=== PATIENT | female | born 1975 | race African-American/Black ===

== ENCOUNTER → 2017-07-16 08:25 | Outpatient (CLI) | payer BC, SELFPAY ==
--- NOTE | 2017-07-16 08:29 | MM_ITS ---
MM Dig screening mamm BI w/CAD CAD Screening COMPARISON: None, previous mammograms were performed at [facility] but they're not available for review at this time INDICATION: There is no personal or family history of breast cancer TECHNIQUE: Standard CC and MLO images were obtained. R2 CAD reviewed. FINDINGS: The breasts are composed primarily of fat with minimal scattered fiber glandular densities throughout each breast. There are tiny benign-appearing nodular densities one in each breast there is no suspicious lesion and no suspicious microcalcifications. IMPRESSION: Fatty type breast parenchyma with no suspicious lesion seen recommend yearly follow-up BI-RADS Category: 2 Benign Finding(s) RECOMMENDED FOLLOW-UP: 1YR - 1 YEAR FOLLOW-UP (A letter has been sent to the patient regarding results of the study.)
[2017-07-16 11:10] LABS: Basophils % 0.3 % (0.1-2.0); Eosinophils # 0.3 K/mm3 (0.0-0.4); Hematocrit 39.3 % (37.0-47.0); Hemoglobin 12.1 g/dL (12.2-16.2); Lymphocytes # 1.5 K/mm3 (0.7-4.5); Lymphocytes % 22.3 K/mm3 (10-50); Mean Corpuscular HGB Conc 30.7 g/dL (31.8-35.4); Mean Corpuscular Hemoglobin 24.4 pg (27.0-31.2); Mean Corpuscular Volume 79.4 fl (81-99); Mean Platelet Volume 7.3 fl (7.4-10.4); Monocytes # 0.3 K/mm3 (0.1-1.0); Monocytes % 4.9 % (1.7-9.3); Neutrophils # 4.6 K/mm3 (1.8-7.8); Neutrophils % 68.5 % (37.0-80.0); Platelet Count 296 K/mm3 (142-424); Red Blood Count 4.95 M/mm3 (4.20-5.40); Red Cell Distribution Width 15.8 % (11.5-17.5); White Blood Count 6.7 K/mm3 (4.8-10.8)
[2017-07-16 12:39] LABS: Chol/HDL Ratio 2.8 (1-3.5); Cholesterol 223 mg/dL (140-200); HDL Cholesterol 80 mg/dL (29-89); LDL Cholesterol 111 mg/dL (0-130); Triglycerides 161 mg/dL (30-200); VLDL Cholesterol 32 mg/dL (0-40)
[2017-07-16 12:43] LABS: Alanine Aminotransferase 18 U/L (12-78); Albumin Level 3.1 gm/dL (3.4-5.0); Albumin/Globulin Ratio 0.7 (1.1-1.8); Alkaline Phosphatase 68 U/L (46-116); Anion Gap 13.3 mEq/L (5-15); Aspartate Amino Transferase 15 U/L (15-37); Bilirubin,Total 0.2 mg/dL (0.2-1.0); Blood Urea Nitrogen 12 mg/dL (7-18); Carbon Dioxide 26 mmol/L (21.0-32.0); Chloride 101 mmol/L (98-107); Creatinine,Serum 0.79 mg/dL (0.55-1.02); Estimated Glomerular Filt Rate 80 ml/min (>60); GFR (African American) 97 ML/MIN (>60); Globulin 4.7 gm/dl (1.3-3.2); Glucose 106 mg/dL (74-106); Potassium 4.3 mmoL/L (3.5-5.1); Sodium 136 mmol/L (136-145); Total Protein,Serum 7.8 gm/dL (6.4-8.2)
== END ==
PROVIDERS: Family Provider Family Medicine; PCP Family Medicine; Visit Provider Nurse Practitioner Obstetrics & Gynecology
DX: Z12.31 Encounter for screening mammogram for malignant neoplasm of breast (principal); R53.82 Chronic fatigue, unspecified
CPT/HCPCS: 36415; 77067; 80053; 80061; 85025

== ENCOUNTER → 2018-04-01 09:18 | Outpatient (CLI) | payer BC, SELFPAY ==
--- NOTE | 2018-04-01 09:38 | XR_ITS ---
XR knee LT 3V HISTORY: ITS.REASON: KNEE PAIN ORDERING PHYSICIAN: Jacqueline Ross PATIENT AGE: 43 years COMPARISON: 06/29/2015 FINDINGS: There are moderate osteoarthritic changes of the medial compartment and patellofemoral joint with decrease in joint space, osteosclerosis, and osteophyte formation. This is somewhat worse than when compared to the previous exam. A calcific density is present medial to the medial condyle of the femur and could be related to an old fracture/ligamentous injury. IMPRESSION: Slight progression of the osteoarthritic changes of the left knee as described above Old fracture versus prior ligamentous injury at the medial femoral condylar area
== END ==
PROVIDERS: PCP Nurse Practitioner Family; Visit Provider Nurse Practitioner Family
DX: M25.562 Pain in left knee (principal)
CPT/HCPCS: 73562

== ENCOUNTER → 2018-04-21 15:51 | Outpatient (CLI) | payer BC, SELFPAY ==
--- NOTE | 2018-04-21 15:54 | MR_ITS ---
MR knee LT wo con HISTORY: Left knee pain with limited range of motion ITS.REASON: KNEE PAIN, LEFT ORDERING PHYSICIAN: Martin Mauricio MD PATIENT AGE: 43 years Comparison: 04/01/2018 TECHNIQUE: Standard multiplanar multiecho sequences are performed without contrast. FINDINGS: The exam is limited secondary to patient's body habitus and the fact that the need well could not be used.. The anterior cruciate ligament is not identified and presumed torn. Posterior cruciate ligament has an unremarkable appearance. The collateral ligaments appear intact. The quadriceps tendon is unremarkable. There is increased signal involving the proximal and distal aspect of the popliteal tendon consistent with tendinopathy/tendinosis. There are severe osteoarthritic changes involving all 3 compartments. No obvious meniscal tear. There is mild lateral subluxation of the patella with thinning of the patellar cartilage consistent with chondromalacia patella. There is a 13 mm subchondral cystic lesion in the proximal tibia at the interspinous region of the tibia. There is some bone marrow edema lateral to this lesion within the proximal tibia. There is some scattered increased T2 signal within the fat of the knee nonspecific suggesting some underlying inflammation. There is also slight increased T2 signal along both medial and lateral aspect of the knee within the soft tissues. IMPRESSION: 1. Very limited exam. There are severe osteoarthritic changes of the knee joint including all 3 compartments worse at the medial compartment and patellofemoral joint. 2. Anterior cruciate ligament is not identified and is presumed torn. 3. A cystic lesion is present involving the proximal tibia at the interspinous region and may be due to a geode with some edema lateral to this lesion. 4. There is edema about both medial and lateral aspect of the knee joint and within the fat of the knee joint suggesting underlying inflammation 5. 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
== END ==
PROVIDERS: PCP Family Medicine; Visit Provider Family Medicine
DX: M25.562 Pain in left knee (principal)
CPT/HCPCS: 73721

== ENCOUNTER 2018-06-12 16:30 | Outpatient (RCR) | payer BC, SELFPAY ==
--- NOTE | 2018-05-30 17:42 | HMH.RHREAS ---
Rehab Reassessment Rehab OP Re-assessment Start: 05/30/18 17:30 Freq: Status: Active Protocol: Document 05/30/18 17:34 KIEL (Rec: 05/30/18 17:41 KIEL [id number]) Electronically Signed By Landon Hooker, PT 05/30/18 17:34 Rehab Re-assessment Subjective Subjective Pt reports 65% improvement since start of care. Objective Objective Notes AROM WNL R MMT: hip flex/ext/abd/add 4+ /5 IR/ER 4/5 knee flex/ext 4+/ 5 Pain: 4/10 at worst TTP: medial joint line Neuro WNL Assessment Progress Assessment Progressing as Expected Assessment Notes Pt progressing well. RLE strength continues to improve. Mobility is no longer an issue. She continues to have difficulty/pain with prolonged standing/bending/squatting activity which is contributing to functional limitations with household, work related and recreational activities. Patient goals met STG's Goals Not Met LTG's Plan Plan Continue with current POC. Frequency of Therapy 2x/week Duration of therapy 2 weeks. Time and Billing Re-Eval Time 15 Re-Eval Billing Units 1 PHYSICIAN CERTIFICATION: I certify the specified therapy services for Karin Smith are required, authorized, and reviewed every 30 days.
== END 2018-06-12 16:35 | disposition home or self-care (01) ==
LOC: PT 16:30
PROVIDERS: Visit Provider Nurse Practitioner Family
DX: M25.562 Pain in left knee (principal)
CPT/HCPCS: 97010; 97014; 97110; 97163; 97164; G0283

== ENCOUNTER → 2019-08-17 09:57 | Outpatient (CLI) | payer BC, SELFPAY ==
--- NOTE | 2019-08-17 09:57 | MM_ITS ---
PROCEDURE: MM DIG SCREENING MAMM BI W/CAD CLINICAL INDICATION: screening xmg There is no personal or family history of breast cancer. The patient is on control pills. COMPARISON: [facility] MM Dig screening mamm BI w/CAD from 07/16/2017 TECHNIQUE: Standard CC and MLO images and 3D Tomosynthesis was obtained. R2 CAD reviewed. FINDINGS: The breasts are composed primarily of fat with minimal scattered fibroglandular densities noted in each breast. There is a stable tiny benign-appearing nodular density near the axillary tail left breast. There is no suspicious lesion and no suspicious microcalcifications. IMPRESSION: Fatty type breast parenchyma with no suspicious lesions seen BI-RAD Category: 2 Benign Finding(s) FOLLOW-UP: 1YR 1 Year Follow-up (A letter has been sent to the patient regarding results of the study.) Dictated by: Dr. Jonel Gutiérrez MD 08/17/2019 16:[address] Jonel Gutiérrez MD in [place] 08/17/2019 16:27
== END ==
PROVIDERS: PCP Family Medicine; Visit Provider Nurse Practitioner Obstetrics & Gynecology
DX: Z12.31 Encounter for screening mammogram for malignant neoplasm of breast (principal)
CPT/HCPCS: 77063; 77067

== ENCOUNTER → 2020-10-04 09:16 | Outpatient (CLI) | payer BC, SELFPAY ==
[2020-10-04 10:07] LABS: Basophils % 0.4 % (0.1-2.0); Eosinophils # 0.4 K/mm3 (0.0-0.4); Eosinophils % 6.2 % (0.1-12.0); Hematocrit 34.5 % (37.0-47.0); Hemoglobin 10.5 g/dL (12.2-16.2); Lymphocytes # 1.3 K/mm3 (0.7-4.5); Lymphocytes % 20.8 % (10-50); Mean Corpuscular HGB Conc 30.6 g/dL (31.8-35.4); Mean Corpuscular Volume 78.4 fl (81-99); Mean Platelet Volume 7.8 fl (7.4-10.4); Monocytes # 0.3 K/mm3 (0.1-1.0); Monocytes % 4.6 % (1.7-9.3); Neutrophils # 4.2 K/mm3 (1.8-7.8); Neutrophils % 67.9 % (37.0-80.0); Platelet Count 294 K/mm3 (142-424); White Blood Count 6.2 K/mm3 (4.8-10.8)
[2020-10-04 11:18] LABS: Chloride 105 mmol/L (98-107); Sodium 135 mmol/L (136-145)
[2020-10-04 11:19] LABS: Potassium 4.5 mmoL/L (3.5-5.1)
[2020-10-04 11:21] LABS: Alanine Aminotransferase 17 U/L (12-78); Albumin Level 4.2 g/dl (3.5-5.0); Albumin/Globulin Ratio 1.1 (1.1-1.8); Alkaline Phosphatase 81 U/L (38-126); Anion Gap 10.5 mEq/L (5-15); Aspartate Amino Transferase 31 U/L (14-36); Bilirubin,Total 0.4 mg/dl (0.2-1.3); Blood Urea Nitrogen 13 mg/dl (7-17); Calcium 9.6 mg/dl (8.4-10.2); Carbon Dioxide 24 mmol/L (22.0-30.0); Chol/HDL Ratio 2.5 (1-3.5); Cholesterol 245 mg/dl (140-200); Estimated Glomerular Filt Rate 109 ml/min (>60); GFR (African American) 131 ML/MIN (>60); Globulin 3.7 g/dL (1.3-3.2); Glucose 118 mg/dl (74-100); HDL Cholesterol 97 mg/dl (40-60); Total Protein,Serum 7.9 g/dl (6.3-8.2); Triglycerides 114 mg/dl (30-150); VLDL Cholesterol 23 mg/dL (0-40)
[2020-10-04 11:39] LABS: Direct LDL Cholesterol 124.91 mg/dL (100-129)
== END ==
PROVIDERS: Visit Provider Nurse Practitioner Obstetrics & Gynecology
DX: Z01.419 Encounter for gynecological examination (general) (routine) without abnormal findings (principal)
CPT/HCPCS: 36415; 80053; 80061; 85025

== ENCOUNTER → 2021-01-16 12:52 | Outpatient (CLI) | payer BC, SELFPAY ==
--- NOTE | 2021-01-16 12:52 | MM_ITS ---
PROCEDURE: MM DIG SCREENING MAMM BI W/CAD Digital Breast Tomosynthesis Included CLINICAL INDICATION: screening xmg There is no personal or family history of breast cancer. The patient is on control pills. COMPARISON: [facility] MM Dig screening mamm BI w/CAD from 07/16/2017 MG MM DIG SCREENING MAMM BI W/CAD from 08/17/2019 TECHNIQUE: Standard CC and MLO images and 3D Tomosynthesis was obtained. R2 CAD reviewed. FINDINGS: The breasts are composed primarily of minimal scattered fibroglandular densities in each breast. Again noted is a tiny benign-appearing nodular density near the axillary tail left breast. There is a similar benign-appearing nodular density upper medial aspect right breast. There are no CAD markings. There is no new or suspicious lesion in either breast and no suspicious microcalcifications. IMPRESSION: Fatty type breast parenchyma with no suspicious lesions seen BI-RAD Category: 2 Benign Finding(s) FOLLOW-UP: 1YR 1 Year Follow-up (A letter has been sent to the patient regarding results of the study.) Dictated by: Dr. Jonel Gutiérrez MD 01/18/2021 08:09 Dr. Jonel Gutiérrez MD in [place] 01/18/2021 08:09
== END ==
PROVIDERS: PCP Family Medicine; Visit Provider Nurse Practitioner Obstetrics & Gynecology
DX: Z12.31 Encounter for screening mammogram for malignant neoplasm of breast (principal)
CPT/HCPCS: 77063; 77067

== ENCOUNTER → 2021-02-21 08:25 | Outpatient (CLI) | payer BC, SELFPAY ==
[2021-02-21 08:57] LABS: Basophils # 0.1 K/mm3 (0-0.2); Basophils % 0.8 % (0.1-2.0); Eosinophils # 0.3 K/mm3 (0.0-0.4); Eosinophils % 4.7 % (0.1-12.0); Hematocrit 39.4 % (37.0-47.0); Hemoglobin 12.5 g/dL (12.2-16.2); Lymphocytes # 1.4 K/mm3 (0.7-4.5); Lymphocytes % 22.4 % (10-50); Mean Corpuscular HGB Conc 31.7 g/dL (31.8-35.4); Mean Corpuscular Hemoglobin 28.1 pg (27.0-31.2); Mean Corpuscular Volume 88.4 fl (81-99); Mean Platelet Volume 7.9 fl (7.4-10.4); Monocytes # 0.3 K/mm3 (0.1-1.0); Monocytes % 4.9 % (1.7-9.3); Neutrophils # 4.1 K/mm3 (1.8-7.8); Neutrophils % 67.2 % (37.0-80.0); Platelet Count 258 K/mm3 (142-424); Red Blood Count 4.46 M/mm3 (4.20-5.40); Red Cell Distribution Width 15.1 % (11.5-17.5); White Blood Count 6.1 K/mm3 (4.8-10.8)
== END ==
PROVIDERS: Visit Provider Nurse Practitioner Obstetrics & Gynecology
DX: D50.9 Iron deficiency anemia, unspecified (principal); R53.82 Chronic fatigue, unspecified
CPT/HCPCS: 36415; 85025

== ENCOUNTER → 2021-12-19 15:27 | Outpatient (CLI) | payer BC, SELFPAY ==
--- NOTE | 2021-12-19 15:27 | US_ITS ---
FINAL REPORT CLINICAL HISTORY: Heavy Bleeding, Fibroid uterus FINDINGS: Transvaginal sonographic images of the pelvis were obtained. This study was limited secondary to body habitus. The uterus is enlarged measuring 11.4 x 9.6 x 8.9 cm. The endometrium measures 8 mm, which is within normal limits. There is a small amount of fluid in the endometrium. There are multiple masses within the uterus consistent with uterine fibroids. The largest measures up to 5.3 cm. The ovaries are not visualized. There is no evidence of free fluid. IMPRESSION: Enlarged uterus with multiple fibroids measuring up to 5.3 cm. Reviewed, Interpreted and Dictated by Alexander Herrera III, MD Transcribed by Iesha Heaton Authenticated and [facility]
== END ==
LOC: RAD 15:27
PROVIDERS: PCP Family Medicine; Visit Provider Nurse Practitioner Obstetrics & Gynecology
DX: D25.9 Leiomyoma of uterus, unspecified (principal); N92.0 Excessive and frequent menstruation with regular cycle
CPT/HCPCS: 76830

== ENCOUNTER → 2022-02-21 09:38 | Outpatient (CLI) | payer BC, SELFPAY ==
--- NOTE | 2022-02-21 09:38 | MM_ITS ---
PROCEDURE INFORMATION: Exam: MG Bilateral Screening 3D Mammography Exam date and time: 02/21/2022 8:14 AM Age: 47 years old Clinical indication: Screening. No family history of breast cancer. TECHNIQUE: Imaging protocol: Bilateral Screening tomosynthesis and 2D mammography including computer-aided detection (CAD) when performed. COMPARISON: 1. MG MM DIG SCREENING MAMM BI W/CAD 01/16/2021 12:51 PM 2. MG MM DIG SCREENING MAMM BI W/CAD 08/17/2019 10:00 AM 3. MG [facility] MM Dig screening mamm BI w/CAD 07/16/2017 8:45 AM FINDINGS: MAMMOGRAPHY: Breast composition: There are scattered areas of fibroglandular density. Mass: No suspicious mass. Architectural distortion: None. Calcifications: No suspicious calcifications. Asymmetric density: None. Skin thickening: None. Axillary adenopathy: None. IMPRESSION: No mammographic evidence of malignancy. Annual screening is recommended unless otherwise clinically indicated. ASSESSMENT: BI-RADS Category 1: Negative
== END ==
PROVIDERS: PCP Nurse Practitioner Obstetrics & Gynecology; Visit Provider Nurse Practitioner Obstetrics & Gynecology
DX: Z12.31 Encounter for screening mammogram for malignant neoplasm of breast (principal)
CPT/HCPCS: 77063; 77067

== ENCOUNTER → 2022-05-28 14:56 | Outpatient (CLI) | payer BC, SELFPAY ==
[2022-05-28 16:00] LABS: Basophils % 0.4 % (0.1-2.0); Eosinophils # 0.1 K/mm3 (0.0-0.4); Eosinophils % 1.1 % (0.1-12.0); Hematocrit 36.5 % (37.0-47.0); Hemoglobin 11.2 g/dL (12.2-16.2); Lymphocytes # 1.2 K/mm3 (0.7-4.5); Lymphocytes % 12.7 % (10-50); Mean Corpuscular HGB Conc 30.6 g/dL (31.8-35.4); Mean Corpuscular Hemoglobin 23.7 pg (27.0-31.2); Mean Corpuscular Volume 77.4 fl (81-99); Mean Platelet Volume 8.1 fl (7.4-10.4); Monocytes # 0.4 K/mm3 (0.1-1.0); Monocytes % 4.1 % (1.7-9.3); Neutrophils # 7.8 K/mm3 (1.8-7.8); Neutrophils % 81.6 % (37.0-80.0); Platelet Count 395 K/mm3 (142-424); Red Blood Count 4.72 M/mm3 (4.20-5.40); Red Cell Distribution Width 18.7 % (11.5-17.5); White Blood Count 9.5 K/mm3 (4.8-10.8)
[2022-05-28 17:09] LABS: Alanine Aminotransferase 26 U/L (12-78); Albumin Level 4.6 g/dl (3.5-5.0); Albumin/Globulin Ratio 1.3 (1.1-1.8); Alkaline Phosphatase 126 U/L (38-126); Anion Gap 25.5 mEq/L (5-15); Aspartate Amino Transferase 33 U/L (14-36); Bilirubin,Total 0.2 mg/dl (0.2-1.3); Blood Urea Nitrogen 22 mg/dl (7-17); Calcium 11.3 mg/dl (8.4-10.2); Carbon Dioxide 23 mmol/L (22.0-30.0); Chloride 94 mmol/L (98-107); Estimated Glomerular Filt Rate 37 ml/min (>60); GFR (African American) 45 ML/MIN (>60); Globulin 3.6 g/dL (1.3-3.2); Glucose 86 mg/dl (74-100); Potassium 3.5 mmoL/L (3.5-5.1); Sodium 139 mmol/L (136-145); Total Protein,Serum 8.2 g/dl (6.3-8.2)
[2022-05-28 17:37] LABS: HCG,Quantitative < 2 mIU/ml (0-5.42)
== END ==
PROVIDERS: PCP Family Medicine; Visit Provider Nurse Practitioner Obstetrics & Gynecology
DX: N92.0 Excessive and frequent menstruation with regular cycle (principal)
CPT/HCPCS: 36415; 80053; 84702; 85025

== ENCOUNTER 2022-05-30 06:04 | Day surgery (SDC) | payer BC, SELFPAY ==
[2022-05-30 06:12] VITALS: BMI 46.6
--- NOTE | 2022-05-30 06:25 | ECG_ITS ---
APPROVED REPORT Exam: Resting ECG HR:103 bpm ECG Measurements Heart Rate [address] 163 P 2 QRSd 92 QRS 23 QT 340 T -16 QTc 400 Conclusion SINUS TACHYCARDIA Isolated Q in iii ABNORMAL ECG UNCONFIRMED REPORT Electronically signed by : Martin Porter MD 05/30/2022 13:12:25
[2022-05-30 06:29] VITALS: BP 121/75; PULSE 105; RESP 18; TEMP 37.1; O2SAT 100
[2022-05-30 06:58] LABS: Coronavirus 19, PCR Not Detected (NotDetected); Influenza A, PCR Not Detected (NotDetected); Influenza B, PCR Not Detected (NotDetected)
--- NOTE | 2022-05-30 08:08 | EXP.CARD.CON ---
History of Present Illness History of Present Illness Consult date: 05/30/22 Requesting physician: Latrell Woodruff Chief complaint: Abnormal EKG, preop evaluation Additional Medical History:: 1. Hypertension, treated for 1 to 2 years 2. 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 Hyperlipidemia, treated for 2 years 4. Family history of early heart disease in both parents in their 50s who are smokers 5. Obesity 6. Abnormal EKG with isolated ST-T abnormalities in lead III, 05/30/2022 7. Osteoarthritis 8. Phentermine use History of present illness: 47-year-old black female seen in the preop area for abnormal EKG. patient denies any chest pain, pressure or tightness and no prior history of coronary artery disease. She was here today for a total abdominal hysterectomy for uterine fibroids and recurrent bleeding with anemia. Due to the abnormal EKG, surgery was canceled and cardiology consulted. History pertinent for hypertension, hyperlipidemia and strong family history of coronary artery disease. Recent phentermine use for weight loss noted. [facility] Medical History (Updated 05/30/22 @ 08:14 by STUART Minor) Allergies Anxiety Family history of early CAD History of COVID-19 Hyperlipidemia Hyperlipidemia Hypertension Osteoarthritis Surgical History History of bilateral tubal ligation Family History Other Family history of diabetes mellitus type II Family history of myocardial infarction Social History (Updated 05/30/22 @ 06:33 by Martha Simpson RN) Smoking Status: Never smoker alcohol intake: never substance use type: denies use current occupational status: employed Travel in the last 8 weeks: None housing: house lives independently: Yes marital status: single education level: high school caffeine: Yes special bhavesh needs: No agree to transfusion: No do you feel safe at home: Yes victim of physical abuse: No victim of emotional abuse: No victim of sexual abuse: No would you like helpful sources: No Review of Systems Review of Systems Review of systems:: pertinent systems reviewed and negative unless documented below *Cardiovascular Cardiovascular: Denies chest pain, Denies chest pain with activity and Reports dyspnea on exertion *Respiratory Respiratory: Denies chest congestion, Denies cough and Reports dyspnea on exertion *Gastrointestinal Gastrointestinal: Denies abdominal pain, Denies dyspepsia and Denies vomiting *Genitourinary Genitourinary: Reports abnormal vaginal bleeding *Musculoskeletal Musculoskeletal: Reports arthralgias Exam Data for Last 24 hours Vital signs and Labs for Last 24 Hours: Temp Pulse Resp BP Pulse Ox 98.7 F 105 H 18 121/75 100 05/30/22 06:29 05/30/22 06:29 05/30/22 06:29 05/30/22 06:29 05/30/22 06:29 Laboratory Results - last 24 hr 05/30/22 06:55: SARS-CoV-2 (PCR) Not detected, Influenza A Untype (PCR) Not detected, Influenza Type B (PCR) Not detected I & O for Last 24 hours: Intake & Output 05/27/22 05/28/22 05/29/22 05/30/22 11:59 11:59 11:59 11:59 Weight 289 lb Constitutional Constitutional: no acute distress *Routine Neck Exam Neck: Present supple; Absent JVD or carotid bruit *Routine Respiratory Exam Respiratory: Present CTA bilaterally; Absent rhonchi or wheezes *Routine Cardiovascular Exam Cardiovascular: Present RRR; Absent murmur, gallop or rubs *Routine Extremities Exam Extremities: Absent cyanosis, clubbing or edema *Routine Neurological Exam Neurological: Present alert, oriented X3 and CN II-XII intact Meds Home Medications and Allergies Home Medications Medication Instructions Recorded Confirmed Type hydroxyzine pamoate 25 mg capsule 25 mg PO DAILY Anxiety 30 days #30 07/22/18 05/30/22 History caps multivitamin 1 cap PO DAILY Suppl
--- NOTE | 2022-05-31 08:43 | P.PN_ITS ---
Subjective *Date: 05/30/22 *Time: 08:43 Interval history: She was scheduled for JANELL and bilateral salpingectomy. She has a fibroid uterus. She had an EKG this morning that was abnormal. As result of that we are going to cancel her surgery and have her see cardiology. She also has some elevated BUN and creatinine possibly consistent with early kidney disease. We will have her see a thermoplastic technician for this. Medical Exam I & O for Labs for Last 24 Hours: Intake & Output 05/28/22 05/29/22 05/30/22 05/31/22 11:59 11:59 11:59 11:59 Weight 289 lb Assessment and Plan *Assessment and plan (1) Obesity: Status: Acute Category: Medical Code(s): E66.9 - Obesity, unspecified (2) CHRISTIANE (acute kidney injury): Status: Acute Category: Medical Code(s): N17.9 - Acute kidney failure, unspecified (3) Abnormal EKG: Status: Acute Category: Medical Code(s): R94.31 - Abnormal electrocardiogram [ECG] [EKG] (4) Hypertension: Status: Acute Category: Medical Code(s): I10 - Essential (primary) hypertension (5) Fibroid uterus: Status: Acute Category: Medical Code(s): D25.9 - Leiomyoma of uterus, unspecified (6) Irregular menstruation: Status: Acute Category: Medical Code(s): N92.6 - Irregular menstruation, unspecified (7) Uterine hypertrophy: Status: Acute Category: Medical Code(s): N85.2 - Hypertrophy of uterus Plan Given the fact that she has an abnormal EKG we will have her see cardiology today. They have done an echocardiogram. They have seen her in consultation and will make arranges for an outpatient stress test. If all these are normal we will reschedule her for surgery.
== END 2022-05-30 07:15 ==
PROVIDERS: PCP Family Medicine; Visit Provider Nurse Practitioner Obstetrics & Gynecology
PROC: 0UT90ZZ Resection of Uterus, Open Approach (ICD-10-PCS; CPT 58150; principal; 2022-05-30 07:30)
DX: N92.0 Excessive and frequent menstruation with regular cycle; R94.31 Abnormal electrocardiogram [ECG] [EKG]; D25.9 Leiomyoma of uterus, unspecified; N92.6 Irregular menstruation, unspecified; N85.2 Hypertrophy of uterus; Z53.8 Procedure and treatment not carried out for other reasons
CPT/HCPCS: 58150; 93005; 96372; 96374; C9803; U0003; U0005

== ENCOUNTER → 2022-05-30 08:13 | Outpatient (CLI) | payer BC, SELFPAY ==
--- NOTE | 2022-05-30 | CA_ITS ---
APPROVED REPORT EXAM: Comprehensive 2D, Doppler, and color-flow Echocardiogram Chrome Tanning Drum Operator: Misty Keys CRT Ht: 5 ft 6 in Wt: 289lbs BSA: 2.34 BP: 121/75 mmHg Indications: PRE-OPCLEARANCE HYSTERECTOMY, Phentermine use for weight loss, Hyperlipidemia, Hypertension/HDD, hx covid 2D Dimensions LVOT 1.98 cm (M/F) 1.5-2.5 LA Volume 44.60 mL LA Volume Index 18.60 mL/m2 (M/F) 16-34 M-Mode Dimensions RVDd 3.00 cm (0.9-2.6) LA Diam 3.62 cm (1.9-4.0) LVDd 5.38 cm (3.5-5.7) Ao Diam 4.09 cm (2.0-3.7) LVDs 3.29 cm (3.5-5.7) IVSd 1.25 cm (0.6-1.1) PWd 1.13 cm (0.6-1.1) EF (Teich) 68.70% FS 38.80% EDV (Teich) 140.10 mL TAPSE 2.97 (<1.7) ESV (Teich) 43.80 mL LV Diastology E Decel Time 220.00 (160-240 msec) E/A Ratio 0.73 MED E' 7.50 (< 7 cm/sec) MED A' 12.90 cm/s E'/MED E' Ratio 8.57 (>14) LAT E' 10.80 (<10 cm/sec) LAT A' 16.80 cm/s E/LAT E' Ratio 5.95 (>14) Aortic Valve AO Peak GR. 12.00 mmHg Mitral Valve MV A Velocity 88.00 (40-130 cm/s) E/A Ratio 0.73 MV Decel. Time 220.00 (160-240 ms) Pulmonary Valve PV Peak Velocity 192.00 (50-150 cm/s) Tricuspid Valve TR P. Velocity 305.00 cm/s RAP Estimate 10.00 mmHg RVSP 47.20 mmHg Left Ventricle Left atrium is mildly enlarged the left ventricle is normal size, estimated ejection fraction 55% with no regional wall motion abnormality, Doppler evidence of impaired LV relaxation seen. Right Ventricle Right atrium and right ventricle are normal size and contractility. Aortic Valve Aortic valve is minimally thickened and fibrosed there is no aortic stenosis or aortic insufficiency. Mitral Valve Mitral valve is grossly normal, there is trace mitral regurgitation. Tricuspid Valve Tricuspid valve grossly normal, there is trace tricuspid regurgitation, tricuspid regurgitation jet velocity is inadequate for calculation of the right ventricular systolic pressure. Pulmonic Valve Pulmonic valve is poorly visualized. Great Vessels Aortic root is normal size. Inferior vena cava is poorly visualized. Pericardium No significant pericardial effusion noted. Conclusion 1. Mildly enlarged atrium, normal left ventricular size, estimated ejection fraction 55% with no regional wall motion abnormality, Doppler evidence of impaired LV relaxation seen. 2. Trace mitral and tricuspid regurgitation. 3. No significant pericardial effusion. 4. Inferior vena cava is poorly visualized. Electronically signed by : Martin Croft MD 05/30/2022 13:14:49
== END ==
LOC: RT 08:14
PROVIDERS: PCP Family Medicine; Visit Provider Physician Assistant
DX: Z01.810 Encounter for preprocedural cardiovascular examination (principal); R94.31 Abnormal electrocardiogram [ECG] [EKG]
CPT/HCPCS: 93306

== ENCOUNTER → 2022-06-06 07:57 | Outpatient (CLI) | payer BC, SELFPAY ==
--- NOTE | 2022-06-06 09:24 | HMH.ITSHM ---
Current Home Medications as stated by this patient Karin Smith or circulation representative. []TRAMADOL ROSUVASTATIN PHENTERMINE MULTIVITAMIN PROVERA LOSARTAN IRON HYDROXYZINE AMLODIPINE
== END ==
LOC: RAD 07:57
PROVIDERS: PCP Family Medicine; Visit Provider Physician Assistant
DX: R94.31 Abnormal electrocardiogram [ECG] [EKG] (principal); I10 Essential (primary) hypertension
CPT/HCPCS: 78452; 93017; A9502

== ENCOUNTER → 2022-09-19 11:34 | Outpatient (CLI) | payer BC, SELFPAY ==
[2022-09-19 12:42] LABS: Basophils # 0.1 K/mm3 (0-0.2); Basophils % 0.8 % (0.1-2.0); Eosinophils # 0.2 K/mm3 (0.0-0.4); Eosinophils % 2.6 % (0.1-12.0); Hematocrit 40.4 % (37.0-47.0); Lymphocytes # 1.7 K/mm3 (0.7-4.5); Lymphocytes % 24.8 % (10-50); Mean Corpuscular HGB Conc 32.1 g/dL (31.8-35.4); Mean Corpuscular Hemoglobin 28.6 pg (27.0-31.2); Mean Corpuscular Volume 88.9 fl (81-99); Mean Platelet Volume 7.7 fl (7.4-10.4); Monocytes # 0.4 K/mm3 (0.1-1.0); Monocytes % 5.3 % (1.7-9.3); Neutrophils # 4.7 K/mm3 (1.8-7.8); Neutrophils % 66.5 % (37.0-80.0); Platelet Count 322 K/mm3 (142-424); Red Blood Count 4.54 M/mm3 (4.20-5.40); Red Cell Distribution Width 14.1 % (11.5-17.5)
[2022-09-19 14:34] LABS: Alanine Aminotransferase 19 U/L (12-78); Albumin/Globulin Ratio 1.3 (1.1-1.8); Alkaline Phosphatase 73 U/L (38-126); Anion Gap 12.9 mEq/L (5-15); Aspartate Amino Transferase 27 U/L (14-36); Bilirubin,Total 0.3 mg/dl (0.2-1.3); Blood Urea Nitrogen 12 mg/dl (7-17); Carbon Dioxide 23 mmol/L (22.0-30.0); Chloride 104 mmol/L (98-107); Estimated Glomerular Filt Rate 77 ml/min (>60); GFR (African American) 93 ML/MIN (>60); Globulin 3.2 g/dL (1.3-3.2); Glucose 111 mg/dl (74-100); Potassium 3.9 mmoL/L (3.5-5.1); Sodium 136 mmol/L (136-145); Total Protein,Serum 7.2 g/dl (6.3-8.2)
[2022-09-19 14:53] LABS: HCG,Quantitative < 2 mIU/ml (0-5.42)
== END ==
LOC: LAB 11:35
PROVIDERS: PCP Family Medicine; Visit Provider Nurse Practitioner Obstetrics & Gynecology
DX: N92.0 Excessive and frequent menstruation with regular cycle (principal)
CPT/HCPCS: 36415; 80053; 84702; 85025

== ENCOUNTER 2022-09-26 08:58 | Inpatient (IN) | payer BC, SELFPAY ==
[2022-09-24 10:32] VITALS: BMI 45.0
[2022-09-26] VITALS (24 sets, daily range): BP systolic 98–117; BP diastolic 58–69; PULSE 69–91; RESP 14–19; TEMP 36.3–43; O2SAT 92–100
[2022-09-26 06:47] LABS: Coronavirus 19, PCR Not Detected (NotDetected); Influenza A, PCR Not Detected (NotDetected); Influenza B, PCR Not Detected (NotDetected)
--- NOTE | 2022-09-26 08:21 | EXP.ANES.CKL ---
[facility] Disclaimer: The information contained in this section may have been updated after the patient was seen, as this information can be updated by other users. Medical History Allergies Anxiety Family history of early CAD HHD (hypertensive heart disease) History of anemia History of COVID-19 Hyperlipidemia Hyperlipidemia Hypertension Osteoarthritis Surgical History History of bilateral tubal ligation Family History Other Cancer Family history of diabetes mellitus type II Family history of myocardial infarction Social History (Updated 09/26/22 @ 06:40 by Martha Simpson RN) Smoking Status: Never smoker alcohol intake: never substance use type: denies use current occupational status: employed Travel in the last 8 weeks: None housing: house lives independently: Yes marital status: single education level: high school caffeine: No special bhavesh needs: No agree to transfusion: No do you feel safe at home: Yes victim of physical abuse: No victim of emotional abuse: No victim of sexual abuse: No would you like helpful sources: No [facility] Anesthesia Checklist Patient Identification Patient Identification: Arm Band Structural Data Admitted From: Home Planned Operative Procedure/s: [facility] Consent for Planned Operative Procedure(s) Verified: Yes Verified Documents: Surgical Consent and History and Physical NPO Status Verified Time NPO: 00:00 Additional verifications Anesthesia Reactions: No Hx Blood Transfusions: No Blood Transfusion Reaction: No Airway Assessment C-Spine Mobility Assessed: Yes TMJ Mobility Assessed: Yes Dentition: Good Dentition Neurological Assessment Level of Consciousness: Awake and Alert Anesthesia Plan Anesthesia Risk discussed: Yes Anesthesia Plan: Verified ASA Class: III Anesthesia Type: General
--- NOTE | 2022-09-26 09:43 | HMH.PHAINT1 ---
Pharmacy Intervention Comments: home medication list verified using list from outpatient pharmacy and cardiology office
--- NOTE | 2022-09-26 09:59 | SUR.OPER ---
0905- decision to go open to open to open abdominal hysterectomy made. End time for laparoscopic portion of the case was 907. All counts completed for the laparoscopic portion of the case and were correct and table/all supplies removed from the room. blades-2 suture-11 hypo-4 bovie-1 laps-5 rays-10 New table brought into the room at this time and a new count was completed with all normal counts, main set, bookwalter, and hysterectomy instruments. Pt was reprepped and draped to start the open portion of the case. 0922- family updated of the decision to go open and the consent was updated and resigned. 0923- open incision made at this time.
--- NOTE | 2022-09-26 10:54 | EXP.OP.NOTE ---
Date of procedure: 09/26/22 Pre-op Diagnosis:: Fibroid uterus, menorrhagia Post-op Diagnosis:: Fibroid uterus, menorrhagia Procedure performed:: Total abdominal hysterectomy, bilateral salpingectomy Surgeon:: Latrell Woodruff MD [employer] Driver(s):: Dr. Mora NIPPLE THREADER:: Woodrow Castellon Anesthesia: GETA Estimated blood loss (mL): 750 Clinical Note:: She is a 47-year-old lady who complains of extremely heavy periods. She is known to have fibroids. After having discussed the risk and benefits we elected to perform a hysterectomy and bilateral salpingectomy. We had initially thought we could do it laparoscopically but the uterus was just too large. As a result of that we elected to reprepped and redraped her and perform a midline laparotomy. Operative findings:: She had a very large uterus with multiple fibroids. There was a 6 cm fibroid off the left fundus of the uterus and the uterus itself was grossly enlarged about the size of large softball. There were also small fibroids on the external surface of the uterus measuring 1 to 2 cm. Her ovaries and tubes appeared normal. Operative note:: She was taken the operating room where general anesthesia was found be adequate. She is prepped draped in sterile fashion in the semilithotomy position. A weighted speculum placed in vagina and the anterior lip of the cervix was grasped with a tenaculum. A Pilar uterine manipulator was placed in the uterine cavity. The balloon was insufflated. I then injected around the umbilicus with 0.25% ropivacaine. I made a small incision and inserted a Veress needle into abdominal cavity. The abdominal cavity was insufflated with carbon oxide gas to a pressure of 20 mmHg. We then inserted an 11 mm trocar under direct vision. In the suprapubic area we injected through and through and once again inserted a 5 mm trocar under direct vision. We then placed lateral trocars in the left lower quadrant and right lower quadrant. I identified the inferior epigastric arteries, went lateral to these and injected through and through. I then made a small incision and inserted 11 mm trocars under direct vision. The findings were as previously dictated. I was able to grasp the left round ligament and opened this up with harmonic scalpel. I then dissected the left tube off the meso salpinx and left it attached to the cornua of the uterus. There was a large 6 cm fibroid on the left side of the fundus of the uterus. I was unable to take down the utero-ovarian ligament with harmonic scalpel. I then opened up the peritoneum overlying the bladder and freed this up just past the midline. I took down the posterior aspect of the broad ligament to the level of the uterine arteries. At this point in time I realized that the blood vessels to the uterus were massive and I was concerned that we might get into some bleeding if I started taking down more of the blood vessels laparoscopically. We also had a problem with the Gerhard stirrups. The lock on the stirrups had broken. As result of all this we elected to perform a total abdominal hysterectomy rather than laparoscopic. I closed the lateral trocar incisions deeply with 2-0 Vicryl suture followed by running subcuticular 4-0 Monocryl suture. Sterile dressings were applied here. The trocars were removed and the gas letter to her abdomen. She was then prepped and draped again in the supine position. A Siddiqui cath was in her bladder. A panni abdominal retractor was used to raise her abdominal wall towards her shoulders. A midline incision was made with knife and then carried through to the underlying layer of fascia with cautery. The fascia was opened midline with cautery and extended superiorly and inferiorly with cautery. We then grasped the peritoneum and opened this up with Metzenbaum scissors. The incision was then extended superiorly and inferiorly with cautery with good visualization of the bladder inferiorly and the bowel below. A Bookwalter retracto
--- NOTE | 2022-09-26 11:07 | EXP.ANES.I ---
[facility] Anesthesia Record Part I Anesthesia Record I Intake, IV Amount: 2,000 Estimated blood loss (mL): 700 Urine output (mL): 300 Blood Products used (#): none Blood Pressure: 102/59 SaO2: 92 Pulse Rate: 85 Respiratory Rate: 16 Temperature: 98.6 F Patient is:: Drowsy and Stable Stable to PACU at:: 11:00
--- NOTE | 2022-09-26 12:30 | PC.NURSE ---
pt called out requesting Vistaril for anxiety. pt states she takes Vistaril at home and last took the medication at [address] Woodruff called and verbal order given for Vistaril 25 mg TID prn. Order read back and verified.
[2022-09-26 14:45] LABS: Microscopic,Cath URINE MICROSCOPIC (MICROSCOPIC)
--- NOTE | 2022-09-26 15:54 | EXP.HP ---
History of Present Illness *Admission Date: 09/26/22 *Reason for visit:: Fibroid uterus, menorrhagia *History of present illness: She is a 47-year-old lady who complains of extremely heavy periods. Ultrasound confirmed that she had multiple fibroids within the uterus. The largest is about 6 cm. After having discussed the risk and benefits we elected to perform a hysterectomy. [facility] Disclaimer: The information contained in this section may have been updated after the patient was seen, as this information can be updated by other users. Medical History Allergies Anxiety Family history of early CAD HHD (hypertensive heart disease) History of anemia History of COVID-19 Hyperlipidemia Hyperlipidemia Hypertension Osteoarthritis Surgical History H/O: hysterectomy History of bilateral tubal ligation Family History Family history of diabetes mellitus type II Family history of myocardial infarction Cancer Social History Smoking Status: Never smoker alcohol intake: never substance use type: denies use current occupational status: employed Travel in the last 8 weeks: None housing: house lives independently: Yes marital status: single education level: high school caffeine: No special bhavesh needs: No agree to transfusion: No do you feel safe at home: Yes victim of physical abuse: No victim of emotional abuse: No victim of sexual abuse: No would you like helpful sources: No Review of Systems Review of Systems Review of systems:: pertinent systems reviewed and negative unless documented below Meds Home Medications and Allergies Home Medications Medication Instructions Recorded Confirmed Type multivitamin 1 cap PO DAILY Supplement 09/21/19 09/26/22 History rosuvastatin 5 mg tablet 5 mg PO DAILY Cholesterol 12/11/21 09/26/22 History tramadol 50 mg tablet 100 mg PO BID Pain 12/11/21 09/26/22 History losartan 100 1 tab PO DAILY High blood pressure 04/02/22 09/26/22 History mg-hydrochlorothiazide 25 mg tablet iron 18 mg tablet 36 mg PO DAILY Supplement 05/28/22 09/26/22 History amlodipine 10 mg tablet 10 mg PO DAILY High blood pressure 09/19/22 09/26/22 History metoprolol succinate 50 mg 50 mg PO DAILY High blood pressure 09/24/22 09/26/22 History tablet,extended release 24 hr (Toprol XL) hydroxyzine pamoate 25 mg capsule 25 mg PO Q8HP PRN Anxiety 09/26/22 09/26/22 History medroxyprogesterone 10 mg tablet 10 mg PO DAILY hormone replacement 09/26/22 09/26/22 History (Provera) therapy New Prescriptions to Start Prescriptions: Allergies Allergy/AdvReac Type Severity Reaction Status Date / Time baires Allergy Severe Swelling Verified 09/26/22 06:26 of Lip/Tongue/Throat Exam Data for Last 24 hours Vital signs and Labs for Last 24 Hours: Temp Pulse Resp BP Pulse Ox 97.6 F 73 18 109/60 L 100 09/26/22 14:15 09/26/22 14:45 09/26/22 14:45 09/26/22 14:45 09/26/22 14:45 Laboratory Results - last 24 hr 09/26/22 06:33: SARS-CoV-2 (PCR) Not detected, Influenza A Untype (PCR) Not detected, Influenza Type B (PCR) Not detected I & O for Last 24 hours: Intake & Output 09/24/22 09/25/22 09/26/22 09/27/22 11:59 11:59 11:59 11:59 Intake Total 1999 Balance 1999 Weight 280 lb 0.005 oz Constitutional Constitutional: no acute distress and obese *Routine HEENT Exam Head: Present normocephalic Eye: Present EOMI and PERRL ENT: Present mucous membranes moist *Routine Neck Exam Neck: Present supple; Absent lymphadenopathy *Routine Respiratory Exam Respiratory: Present CTA bilaterally *Routine Cardiovascular Exam Cardiovascular: Present RRR *Routine Abdominal Exam Abdominal: Present soft and normoactive bowel soun
--- NOTE | 2022-09-26 15:56 | PC.NURSE ---
pt presented to OB from PACU at 1145. pt arrived to the floor drowsy but alert and oriented x 4. lung sounds clear t/o. abdomen soft, tender t/o. bowel sounds hypoactive. pt is belching and feeling as if she needs to pass gas. pt has 3 incisions noted to the abdominal area, one midline, one left abdomen, one right abdomen. incision to the midline has had scant amount of bright red drainage noted. pt has had pain described as cramping sensation and medicated per MAR. pt has tolerated ice chips with no nausea described. SCD's in place. f/c in place and draining.
[2022-09-26 16:38] LABS: Hematocrit 36.7 % (37.0-47.0); Hemoglobin 12.1 g/dL (12.2-16.2)
--- NOTE | 2022-09-26 19:55 | PC.NURSE ---
Pt requested to sit on the side of the bed at this time, pt moved to the side of the bed w/o complication. pt tolerated well, cb within reach instructed to call out when she is ready to lay back down.
[2022-09-26 20:30] LABS: Appearance,Urine/Cath CLEAR (Clear); Bilirubin,Cath Negative (Negative); Blood, Urine/Cath Negative (Negative); Color,Urine/Cath YELLOW (Yellow); Glucose,Urine/Cath (UA) Negative (Negative); Ketones,Urine/Cath Negative (Negative); Leukocyte Esterase,Cath Negative (Negative); Nitrate,Cath Negative (Negative); Protein,Urine/Cath Negative (Negative); Urobilinogen,Cath 0.2 EU/dl (0.2)
[2022-09-27] VITALS (9 sets, daily range): BP systolic 112–128; BP diastolic 59–87; PULSE 79–91; RESP 16–18; TEMP 36.7–37.1; O2SAT 98–100
--- NOTE | 2022-09-27 00:06 | PC.NURSE ---
This rn when doing hourly rounds this hour found iv to be appear to hanging out of dressing, attempted to reapply but iv was pulled out to far, removed remaining tape and applied pressure to sight. Attempted another iv to left ac, unsuccessful, house notified, House attempted to right hand, unsuccesful, will Use US guided. pt updated on poc.
--- NOTE | 2022-09-27 00:40 | PC.NURSE ---
Melisa ho reattempted iv at this time to left Ac, 20 aubree secured and flushed at this time, pt tolerated well.
--- NOTE | 2022-09-27 01:22 | PC.NURSE ---
Addendum entered by Maude Benito RN 09/27/22 01:27: Clarified normal dosing for simethicone 80mg qid prn Original Note: Pt called out and had c/o gas, nothing on mar noted for gas pain, This rn called Dr Mora and recieved new orders for Simethicone 60mg qid prn po as needed for gas. Verified and repeated back, order faxed to pharmacy.
--- NOTE | 2022-09-27 01:58 | PC.NURSE ---
Pt up to the chair at this time per pts request, pt tolerated well cb within reach
--- NOTE | 2022-09-27 04:19 | PC.NURSE ---
Reassessment done at this time. Pt laying in the bed supine and does report some incisional pain and gas r/t surgery, medicated per mar. Pt has three area to abdomen area, one midline below umbilicus that has t&t that has small amount of drainage noted but has remained the same throughout shift. One small area to right of that area and is intact with t&T with small amount of bloody drainage noted to it, has remained same throughout shift. Other area to the right side has remained dry and intact throughout shift. Pt has been up to chair and side of the bed with assistance and reports gas pain is better than it was prior. Bowels remain hypoactive throughout. Pt does report feeling gas and did attempt bedpan earlier in shift with no sucess. Iv to left ac remains good and is infusing well. Non pitting edema noted to bilateral ankles. F/C draining clear, yellow urine at bedside. Lungs clear throughout. Cb within reach.
[2022-09-27 06:53] LABS: Basophils % 0.4 % (0.1-2.0); Eosinophils # 0.1 K/mm3 (0.0-0.4); Eosinophils % 1.6 % (0.1-12.0); Hematocrit 35.2 % (37.0-47.0); Hemoglobin 11.3 g/dL (12.2-16.2); Lymphocytes # 0.5 K/mm3 (0.7-4.5); Lymphocytes % 9.1 % (10-50); Mean Corpuscular Hemoglobin 28.9 pg (27.0-31.2); Mean Corpuscular Volume 90.3 fl (81-99); Mean Platelet Volume 7.5 fl (7.4-10.4); Monocytes # 0.2 K/mm3 (0.1-1.0); Monocytes % 2.8 % (1.7-9.3); Neutrophils # 5.1 K/mm3 (1.8-7.8); Neutrophils % 86.2 % (37.0-80.0); Platelet Count 270 K/mm3 (142-424); Red Cell Distribution Width 14.3 % (11.5-17.5); White Blood Count 5.9 K/mm3 (4.8-10.8)
[2022-09-27 06:55] LABS: MANUAL DIFFERENTIAL MANUAL DIFFERENTIAL (MANUAL DIFF)
[2022-09-27 07:00] LABS: Chloride 99 mmol/L (98-107); Potassium 3.8 mmoL/L (3.5-5.1); Sodium 128 mmol/L (136-145)
[2022-09-27 07:03] LABS: Anion Gap 9.8 mEq/L (5-15); Blood Urea Nitrogen 11 mg/dl (7-17); Calcium 8.3 mg/dl (8.4-10.2); Carbon Dioxide 23 mmol/L (22.0-30.0); Creatinine Clearance Estimated 94 mL/min (50-200); Estimated Glomerular Filt Rate 90 ml/min (>60); GFR (African American) 109 ML/MIN (>60); Glucose 156 mg/dl (74-100)
--- NOTE | 2022-09-27 07:14 | EXP.ANES.II ---
[facility] Anesthesia Record Part II Anesthesia Record Part II Discharge Time: 11:30 Destination: Surgical Day Care (OP Surgery) PACU nurse assessment reviewed?: Yes Patient Condition:: Good Anesthesia Complications:: None Swallowing reflex intact?: Yes Cyanosis?: No Blood Pressure: 117/69 Pulse Rate: 79 Temperature: 98.6 F Mental Status: Alert & Oriented Pain level:: 5 Nausea and/or vomitting:: None Intake, IV Amount: 0
[2022-09-27 07:47] LABS: Eosinophils % 1 % (0-3); Lymphocytes % 10 % (10-50); Monocytes % 4 % (2-9); Neutrophils % 84 % (42-76); Total Cells Counted 100
[2022-09-27 07:48] LABS: Platelet Estimate Normal; RBC Morphology Normal
--- NOTE | 2022-09-27 09:45 | PC.NURSE ---
IV saline locked. Siddiqui Cath discontinued. Tolerated well. Urine specimen hat placed in toilet for measurement of outputs. Pt used I/S. Medicated with Morphine 4mg IV for pain of 8/10.
--- NOTE | 2022-09-27 10:00 | PC.NURSE ---
Pt now sitting on side of bed with assist x 2.
--- NOTE | 2022-09-27 10:00 | EXP.ACUTE.PN ---
Subjective *Date: 09/27/22 *Time: 10:00 Interval history: She continues to do very well. She is eating and drinking and ambulating. She does complain of some bloating. She is taking simethicone for this. She denies any chest pain, shortness of breath or calf tenderness. We are having difficulty controlling her pain so we will switch from Percocet to oral hydromorphone. Medical Exam Vital signs and Labs for Last 24 Hours: Vital Signs Temp Pulse Pulse Resp BP BP Pulse Ox 09/27/22 08:15 98.7 F 87 16 112/59 L 09/27/22 05:17 18 09/27/22 04:18 98.5 F 91 H 17 115/70 98 09/27/22 04:13 17 09/27/22 01:24 98.5 F 86 17 120/67 100 09/26/22 23:20 17 09/26/22 20:54 17 09/26/22 20:00 100 09/26/22 20:00 98.7 F 74 17 117/63 100 09/26/22 18:45 98.7 F 79 16 117/64 100 09/26/22 17:45 81 18 112/58 L 100 09/26/22 16:45 97.8 F 73 18 117/68 100 09/26/22 15:45 70 16 98/62 L 100 09/26/22 14:45 73 18 109/60 L 100 09/26/22 12:00 96 09/26/22 14:15 97.6 F 73 18 108/66 L 100 09/26/22 13:45 69 16 109/60 L 100 09/26/22 13:15 97.6 F 73 16 107/59 L 100 09/26/22 12:45 70 16 100/58 L 100 09/26/22 12:30 73 16 105/63 L 96 09/26/22 12:15 97.4 F L 71 16 101/59 L 97 09/26/22 12:00 97.6 F 75 14 110/64 99 09/26/22 11:45 97.6 F 77 16 110/66 96 09/26/22 11:45 97.5 F L 77 16 110/66 96 09/26/22 11:20 74 18 117/64 95 09/26/22 11:10 75 17 114/69 94 L 03/29/23 11:30 79 19 117/69 94 L 09/26/22 11:26 17 09/26/22 11:00 98.6 F 85 16 102/59 L 92 L 09/27/22 07:14 98.6 F 79 117/69 09/26/22 11:08 98.6 F 85 16 102/59 L Intake and Output 09/26/22 09/27/22 09/27/22 19:59 03:59 11:59 Intake Total 675 / 675 0 / 675 Output Total 600 / 1800 1200 / 1800 Balance 75 / -1125 -1200 / -1125 Intake: Intake, Total IV Amount 675 / 675 0 / 675 Cefazolin Sodium 1 gm In 0.9 % 50 / 50 Sodium Chloride 50 ml @ 100 mls /hr IV Q8H [facility] Rx#:[id number] Lactated Ringers 1000ML 1,000 625 / 625 ml @ 125 mls/hr IV .Q8H [facility] Rx# :[id number] Output: Output, Urine Amount 1200 / 1200 Output, Urine Amount (Catheter) 600 / 600 Siddiqui 600 / 600 Laboratory Results - last 24 hr 09/26/22 09:15: Urine Color Yellow, Urine Appearance Clear, Urine pH 7.0, Ur Specific [place] 1.010, Urine Protein Negative, Urine Glucose (UA) Negative, Urine Ketones Negative, Urine Blood Negative, Urine Nitrate Negative, Urine Bilirubin Negative, Urine Urobilinogen 0.2, Ur Leukocyte Esterase Negative, Urine RBC None, Urine WBC None, Ur Squamous Epith Cells 3-5, Urine Bacteria None 09/26/22 16:15: Hgb 12.1 L, Hct 36.7 L 09/27/22 06:38: WBC 5.9, RBC 3.90 L, Hgb 11.3 L, Hct 35.2 L, MCV 90.3, MCH 28.9, MCHC 32.0, RDW 14.3, Plt Count 270, MPV 7.5, Neut % (Auto) 86.2 H, Lymph % (Auto) 9.1 L, Posey % (Auto) 2.8, Eos % (Auto) 1.6, Baso % (Auto) 0.4, Neut # (Auto) 5.1, Lymph # (Auto) 0.5 L, Posey # (Auto) 0.2, Eos # (Auto) 0.1, Baso # (Auto) 0.0, Total Counted 100, Neutrophils % (Manual) 84 H, Band Neutrophils % 1.0, Lymphocytes % (Manual) 10, Monocytes % (Manual) 4, Eosinophils % (Manual) 1, Platelet Estimate Normal, RBC Morphology Normal 09/27/22 06:38: Sodium 128 L, Potassium 3.8, Chloride 99, Carbon Dioxide 23, Anion Gap 9.8, BUN 11, Creatinine 0.70, Estimated Creat Clear 94, Estimated GFR 90, Est GFR ( Amer) 109, Glucose 156 H, Calcium 8.3 L I & O for Labs for Last 24 Hours: Intake & Output 09/24/22 09/25/22 09/26/22 09/27/22 11:59 11:59 11:59 11:59 Intake Total 1999 675 / 675 Output Total 1800 / 1800 Balance 1999 -1125 / -1125 Weight 280 lb 0.005 oz Head: Present normocephalic ENT: Present normal exam Neck: Present normal inspection Respiratory: Present normal respiratory effort; Absent accessory muscle
--- NOTE | 2022-09-27 10:25 | PC.NURSE ---
Pt sitting straight up in bed. She has belched ALOT with position change.
--- NOTE | 2022-09-27 11:23 | PC.NURSE ---
Pt up to bathroom with 1 person assist.
--- NOTE | 2022-09-27 11:29 | PC.NURSE ---
Pt continues to belch ALOT, still has not passed flatus. Was able to void a small amt when up to toilet.
--- NOTE | 2022-09-27 17:02 | PC.NURSE ---
Pt has rested well throughout the day. Currently is sitting up in chair with visitor x1 at bs. BS(+) x all 4 quads. Pt continues belching often and alot. Still no bm or flatus. No nausea. Tolerating soft diet well. Ambulating in room to chair and/or bathroom with one person stand by assist. Lungs clear. Murmur auscultated. Using I/S intermittently. IV remains saline locked. Flushes easily. Vertical incision with lap sites still have surgical dressing and remain cdi.
[2022-09-28] VITALS (7 sets, daily range): BP systolic 113–135; BP diastolic 57–87; PULSE 84–122; RESP 18; TEMP 36.7–37.4; O2SAT 96–100
--- NOTE | 2022-09-28 03:47 | PC.NURSE ---
Reassessment done at this time, pt reports pain is well controlled at this time and has been ambulating to the bathroom independently throughout the night. Bowels are hyperactive throughout. Lung sounds clear to auscultation throughout. Wound care also provided at this time. Three dressings removed, all sights appear to have no redness or drainage noted, all cleaned with sterile hibclens and 4x4s.Michael appear to be intact on midline incision. New telfa and tegraderm applied to 3 sights. pt tolerated well. I&o has been good throughout shift. Pt had bed bath earlier with sit up assist and reports that did make her feel better, has rested well throughout shift with no complaints. cb remains within reach.
--- NOTE | 2022-09-28 11:33 | EXP.ACUTE.PN ---
Subjective *Date: 09/28/22 *Time: 11:33 Interval history: She is doing very well. Her pain is well controlled. She is eating and drinking and ambulating. She is voiding well. She has not had a bowel movement yet. Her incision is clean and dry. Medical Exam Vital signs and Labs for Last 24 Hours: Vital Signs Temp Pulse Resp BP Pulse Ox 09/28/22 08:28 110 H 98 09/28/22 08:28 98.2 F 110 H 18 113/87 98 09/28/22 03:54 98.1 F 84 118/57 L 100 09/27/22 22:12 17 09/27/22 20:00 98 09/27/22 20:00 98.1 F 82 17 128/87 98 09/27/22 16:00 98.1 F 82 17 122/61 Intake and Output 09/27/22 09/28/22 09/28/22 19:59 03:59 11:59 Output Total 1050 / 2150 1100 / 2150 Balance -1050 / -2150 -1100 / -2150 Output: Output, Urine Amount 1050 / 2150 1100 / 2150 Other: Number of Unmeasured Voids 1 I & O for Labs for Last 24 Hours: Intake & Output 09/25/22 09/26/22 09/27/22 09/28/22 11:59 11:59 11:59 11:59 Intake Total 1999 675 / 675 Output Total 1900 / 1900 2150 / 2150 Balance 1999 -1225 / -1225 -2150 / -2150 Head: Present normocephalic ENT: Present normal exam Neck: Present normal inspection Respiratory: Present normal respiratory effort; Absent accessory muscle use Cardiac: Present Reg Rate and Rhythm GI: Present soft and normal bowel sounds; Absent distention, tenderness, guarding or rigidity Rectal (female): Present deferred (female): Present deferred Extremities: Present normal inspection Skin: Present intact Assessment and Plan *Assessment and plan (1) Hypertension: Status: Acute Category: Medical Code(s): I10 - Essential (primary) hypertension (2) Menorrhagia: Status: Acute Category: Medical Code(s): N92.0 - Excessive and frequent menstruation with regular cycle (3) Irregular menstruation: Status: Acute Category: Medical Code(s): N92.6 - Irregular menstruation, unspecified (4) Fibroid uterus: Status: Acute Category: Medical Code(s): D25.9 - Leiomyoma of uterus, unspecified (5) Uterine hypertrophy: Status: Acute Category: Medical Code(s): N85.2 - Hypertrophy of uterus Plan She continues to do well. We will plan to send her home again tomorrow. We have given her a stool softener and she will also have a Dulcolax suppository if necessary.
--- NOTE | 2022-09-28 17:19 | PC.NURSE ---
Routine reassessment completed. HR at 122bpm. Pt. reports gas pain to right upper shoulder. Nurse offered Mylicon. Pt. refused. No further acute changes noted from previous assessment. Pt. voiding well, and has walked around room and unit this shift. Midline incision noted to be covered with T&T small amount of serosanguineous drainage noted. 2 T&T from lapsites remain C/D/I. Pt. denies pain at this time. No needs noted, call light in place.
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
--- NOTE | 2022-09-29 02:22 | PC.NURSE ---
Back to unit, warning cleared.
[2022-09-29 04:06] VITALS: BP 135/79; PULSE 102; RESP 18; TEMP 37.5
--- NOTE | 2022-09-29 04:07 | PC.NURSE ---
Pt sitting up on side of bed at this time. Given applesauce per request. Denies any pain or discomfort at this time. Temp currently 99.5 oral. States well I was all wrapped up in them blankets . Informed pt that I would give her time to eat applesauce and then come back and retake temp. If still 99(+) then I would bring her some Tylenol. V/U. She has rested well throughout the night. Denies bm yet, states that she feels like she could ... thinks she has passed flatus with coughing. (+) belching. Lungs CTA, dressings to abdomen CDI.
[2022-09-29 05:25] VITALS: TEMP 36.9
[2022-09-29 08:15] VITALS: BP 133/78; PULSE 109; RESP 18; TEMP 37.1; O2SAT 100
[2022-09-29 08:51] VITALS: PULSE 109; O2SAT 100
--- NOTE | 2022-09-29 09:31 | EXP.DC.SUM ---
General Admission date:: 09/26/22 Discharge date: 09/29/22 HPI HPI HPI: She is a 47-year-old lady who complains of extremely heavy periods. Ultrasound confirmed that she had multiple fibroids within the uterus. The largest is about 6 cm. After having discussed the risk and benefits we elected to perform a hysterectomy. Hospital Course Hospital Course Hospital Course: On September 26, 2022 she underwent a total abdominal hysterectomy and bilateral salpingectomy. She had large fibroids and an enlarged uterus. We had attempted to try to free up her uterus laparoscopically but there were extremely large varicose veins and the uterus itself was very large. As result of that we abandoned the laparoscopic procedure and proceeded to abdominal procedure through a midline incision. She has done well postsurgery and has remained afebrile with her hospitalization. She is eating and drinking and ambulating. She is voiding well. She denies any calf tenderness, chest pain or shortness of breath. Her incision is clean and dry. She has had a bowel movement today. She will be discharged home to follow-up with me in approximately 2 weeks time. She will continue with her home medications. She will take Tylenol for her discomfort. She seems to be doing well just with this. She did have a T AP block at the time of her surgery and this seems to be working well. We will send her home with Dilaudid 2 mg to take 1 every 6 hours as needed for pain. We will give her 12 tablets since she has not taking any medication for pain. Her rigo are intact and we will remove these in 2 to 3 weeks in my office. Exam Data for Last 24 hours Vital signs and Labs for Last 24 Hours: Temp Pulse Resp BP Pulse Ox 98.7 F 109 H 18 133/78 100 09/29/22 08:15 09/29/22 08:51 09/29/22 08:15 09/29/22 08:15 09/29/22 08:51 I & O for Last 24 hours: Intake & Output 09/26/22 09/27/22 09/28/22 09/29/22 11:59 11:59 11:59 11:59 Intake Total 1999 675 / 675 Output Total 1900 / 1900 2150 / 2150 200 / 200 Balance 1999 -1225 / -1225 -2150 / -2150 -200 / -200 Constitutional Constitutional: no acute distress *Routine HEENT Exam Head: Present normocephalic *Routine Neck Exam Neck: Present full ROM *Routine Respiratory Exam Respiratory: Present normal respiratory effort; Absent accessory muscle use *Routine Cardiovascular Exam Cardiovascular: Present RRR *Routine Abdominal Exam Abdominal: Present soft and normoactive bowel sounds; Absent tenderness or distended Comments: Her incision is clean and dry *Routine Rectal Exam Patient deferred: digital exam *Routine Exam Patient deferred: external exam *Routine Extremities Exam Extremities: Present full ROM; Absent calf tenderness DS: Diagnosis Discharge Diagnosis (1) Hypertension: Status: Acute (2) Menorrhagia: Status: Acute (3) Irregular menstruation: Status: Acute (4) Fibroid uterus: Status: Acute (5) Uterine hypertrophy: Status: Acute Meds Home Medications and Allergies Home Medications Medication Instructions Recorded Confirmed Type multivitamin 1 cap PO DAILY Supplement 09/21/19 09/26/22 History rosuvastatin 5 mg tablet 5 mg PO DAILY Cholesterol 12/11/21 09/26/22 History tramadol 50 mg tablet 100 mg PO BID Pain 12/11/21 09/26/22 History losartan 100 1 tab PO DAILY High blood pressure 04/02/22 09/26/22 History mg-hydrochlorothiazide 25 mg tablet iron 18 mg tablet 36 mg PO DAILY Supplement 05/28/22 09/26/22 History amlodipine 10 mg tablet 10 mg PO DAILY High blood pressure 09/19/22 09/26/22 History metoprolol succinate 50 mg 50 mg PO DAILY High blood pressure 09/24/22 09/26/22 History tablet,extended release 24 hr (Toprol XL) hydroxyzine pamoate 25 mg capsule 25 mg PO Q8HP PRN Anxiety 09/26/22 09/26/22 History medroxyprogesterone 10 mg tablet 10 mg PO DAILY hormone replacement 09/26/22 09/26/22 History (Provera) therapy h
== END 2022-09-29 10:35 | disposition home or self-care (01) | DRG 743 ==
LOC: OB 09-27 01:55
PROVIDERS: Admitting Provider Nurse Practitioner Obstetrics & Gynecology; PCP Family Medicine; Visit Provider Nurse Practitioner Obstetrics & Gynecology
PROC: 0UT9FZZ Resection of Uterus, Via Natural or Artificial Opening With Percutaneous Endoscopic Assistance (ICD-10-PCS; principal; 2022-09-26 07:30)
DX: D25.1 Intramural leiomyoma of uterus (principal); N92.0 Excessive and frequent menstruation with regular cycle; N92.6 Irregular menstruation, unspecified; N85.2 Hypertrophy of uterus; I10 Essential (primary) hypertension; Z53.31 Laparoscopic surgical procedure converted to open procedure; Z79.899 Other long term (current) drug therapy
CPT/HCPCS: 58150; 36415; 80048; 81001; 85007; 85014; 85018; 85025; 96372; 96374; C9290; C9803; J2405; U0003; U0005

== ENCOUNTER → 2022-11-20 16:05 | Outpatient (CLI) | payer BC, SELFPAY ==
[2022-11-20 16:59] LABS: Basophils % 0.7 % (0.1-2.0); Eosinophils # 0.2 K/mm3 (0.0-0.4); Eosinophils % 4.6 % (0.1-12.0); Hematocrit 37.4 % (37.0-47.0); Hemoglobin 12.1 g/dL (12.2-16.2); Lymphocytes # 2.1 K/mm3 (0.7-4.5); Lymphocytes % 39.4 % (10-50); Mean Corpuscular HGB Conc 32.4 g/dL (31.8-35.4); Mean Corpuscular Hemoglobin 28.2 pg (27.0-31.2); Mean Platelet Volume 7.6 fl (7.4-10.4); Monocytes # 0.3 K/mm3 (0.1-1.0); Neutrophils # 2.6 K/mm3 (1.8-7.8); Neutrophils % 50.2 % (37.0-80.0); Platelet Count 313 K/mm3 (142-424); Red Cell Distribution Width 14.5 % (11.5-17.5); White Blood Count 5.2 K/mm3 (4.8-10.8)
[2022-11-20 17:25] LABS: Alanine Aminotransferase 32 U/L (12-78); Albumin Level 4.2 g/dl (3.5-5.0); Alkaline Phosphatase 103 U/L (38-126); Anion Gap 19.1 mEq/L (5-15); Aspartate Amino Transferase 44 U/L (14-36); Bilirubin,Indirect 0.4 mg/dL (0.0-0.9); Bilirubin,Total 0.4 mg/dl (0.2-1.3); Bilirubin,Unconjugated 0.5 mg/dL (0.0-1.1); Blood Urea Nitrogen 14 mg/dl (7-17); Calcium 9.7 mg/dl (8.4-10.2); Carbon Dioxide 27 mmol/L (22.0-30.0); Chloride 96 mmol/L (98-107); Cholesterol 206 mg/dl (140-200); Estimated Glomerular Filt Rate 90 ml/min (>60); GFR (African American) 109 ML/MIN (>60); Glucose 93 mg/dl (74-100); HDL Cholesterol 102 mg/dl (40-60); Magnesium 1.7 mg/dl (1.6-2.3); Potassium 4.1 mmoL/L (3.5-5.1); Sodium 138 mmol/L (136-145); Total Protein,Serum 8.1 g/dl (6.3-8.2); Triglycerides 66 mg/dl (30-150); VLDL Cholesterol 13 mg/dL (0-40)
[2022-11-20 17:36] LABS: Direct LDL Cholesterol 87.15 mg/dL (100-129)
[2022-11-20 17:40] LABS: Free T4 (Free Thyroxine) 1.33 ng/dl (0.78-2.19)
[2022-11-20 17:56] LABS: Thyroid Stimulating Hormone 1.04 uIU/mL (0.465-4.68)
== END ==
PROVIDERS: PCP Family Medicine; Visit Provider Nurse Practitioner
DX: I11.9 Hypertensive heart disease without heart failure (principal); D64.9 Anemia, unspecified; E87.1 Hypo-osmolality and hyponatremia; N18.30 Chronic kidney disease, stage 3 unspecified; R94.31 Abnormal electrocardiogram [ECG] [EKG]; E66.9 Obesity, unspecified; Z68.42 Body mass index [BMI] 45.0-49.9, adult
CPT/HCPCS: 36415; 80048; 80061; 80076; 83735; 84439; 84443; 85025

== ENCOUNTER → 2023-02-25 08:18 | Outpatient (CLI) | payer BC, SELFPAY ==
--- NOTE | 2023-02-25 08:19 | MM_ITS ---
PROCEDURE INFORMATION: Exam: MG Bilateral Screening 3D Mammography Exam date and time: 02/25/2023 8:15 AM Age: 48 years old Clinical indication: Screening. No family history of breast cancer. TECHNIQUE: Imaging protocol: Bilateral Screening tomosynthesis and 2D mammography including computer-aided detection (CAD) when performed. COMPARISON: 1. MG MM DIG SCREENING MAMM BI W/CAD 02/21/2022 8:14 AM 2. MG MM DIG SCREENING MAMM BI W/CAD 01/16/2021 12:51 PM 3. MG MM DIG SCREENING MAMM BI W/CAD 08/17/2019 10:00 AM 4. MG SCBI MM Dig screening mamm BI w/CAD 07/16/2017 8:45 AM FINDINGS: MAMMOGRAPHY: Breast composition: There are scattered areas of fibroglandular density. Mass: None. Architectural distortion: None. Calcifications: No suspicious calcifications. Asymmetric density: None. Skin thickening: None. Axillary adenopathy: None. IMPRESSION: No mammographic evidence of malignancy. Annual screening is recommended unless otherwise clinically indicated. ASSESSMENT: BI-RADS Category 1: Negative
== END ==
PROVIDERS: PCP Family Medicine; Visit Provider Nurse Practitioner Obstetrics & Gynecology
DX: Z12.31 Encounter for screening mammogram for malignant neoplasm of breast (principal)
CPT/HCPCS: 77063; 77067

== ENCOUNTER → 2023-05-02 15:46 | Outpatient (CLI) | payer BC, SELFPAY ==
[2023-05-02 17:24] LABS: Chloride 102 mmol/L (98-107); Sodium 138 mmol/L (136-145)
[2023-05-02 17:25] LABS: Potassium 3.9 mmoL/L (3.5-5.1)
[2023-05-02 17:27] LABS: Blood Urea Nitrogen 10 mg/dl (7-17); Estimated Glomerular Filt Rate 90 ml/min (>60); GFR (African American) 109 ML/MIN (>60)
[2023-05-02 17:28] LABS: Anion Gap 9.9 mEq/L (5-15); Calcium 9.3 mg/dl (8.4-10.2); Carbon Dioxide 30 mmol/L (22.0-30.0); Glucose 94 mg/dl (74-100)
== END ==
PROVIDERS: PCP Family Medicine; Visit Provider Internal Medicine
DX: I10 Essential (primary) hypertension (principal)
CPT/HCPCS: 36415; 80048

== ENCOUNTER 2024-04-10 07:55 | Outpatient (CLI) | payer BC, SELFPAY ==
--- NOTE | 2024-04-10 07:55 | MM_ITS ---
PROCEDURE INFORMATION: Exam: MG Bilateral Screening 3D Mammography Exam date and time: 04/10/2024 7:43 AM Age: 49 years old Clinical indication: Screening examination TECHNIQUE: Imaging protocol: Bilateral Screening tomosynthesis and 2D mammography including computer-aided detection (CAD) when performed. COMPARISON: 1. MG MM DIG SCREENING MAMM BI W/CAD 02/25/2023 8:15 AM 2. MG MM DIG SCREENING MAMM BI W/CAD 02/21/2022 8:14 AM FINDINGS: MAMMOGRAPHY: Breast composition: The breasts are almost entirely fatty. Mass: None. Architectural distortion: None. Calcifications: No suspicious calcifications. Asymmetric density: None. Skin thickening: None. Axillary adenopathy: None. IMPRESSION: No mammographic evidence of malignancy. Annual screening is recommended unless otherwise clinically indicated. ASSESSMENT: BI-RADS Category 1: Negative.
== END 2024-04-10 23:59 | disposition home or self-care (01) ==
LOC: RAD 07:55
PROVIDERS: PCP Family Medicine; Visit Provider Nurse Practitioner Obstetrics & Gynecology
DX: Z12.31 Encounter for screening mammogram for malignant neoplasm of breast (principal)
CPT/HCPCS: 77063; 77067

== ENCOUNTER 2025-02-15 09:22 | Day surgery (SDC) | payer BC, SELFPAY ==
--- NOTE | 2025-02-15 05:27 | EXP.HP ---
History of Present Illness *Admission Date: 02/15/25 *Reason for visit:: Screening for colon cancer *History of present illness: Mrs. Smith is a 49-year-old female who is here for initial screening colonoscopy. The examination is deemed medically necessary for screening colonoscopy. The patient has been seen, interviewed and examined prior to the procedure by both myself and the anesthesia provider. [facility] Disclaimer: The information contained in this section may have been updated after the patient was seen, as this information can be updated by other users. Medical History Hyponatremia History of anemia HHD (hypertensive heart disease) Family history of early CAD History of COVID-19 Anxiety Osteoarthritis Hyperlipidemia Hypertension Allergies Hyperlipidemia Surgical History S/P JANELL (total abdominal hysterectomy) 09/26/22 - JANELL, BS Hx of bilateral salpingectomy H/O: hysterectomy History of bilateral tubal ligation Family History Other Cancer Family history of diabetes mellitus type II Family history of myocardial infarction Social History (Updated 02/15/25 @ 10:16 by Martha Simpson RN) Smoking Status: Never smoker alcohol intake: never substance use type: denies use current occupational status: employed Travel in the last 8 weeks?: None housing: house lives independently: Yes marital status: single education level: high school caffeine: Yes special bhavesh needs: No agree to transfusion: No do you feel safe at home: Yes victim of physical abuse: No victim of emotional abuse: No victim of sexual abuse: No would you like helpful sources: No Have you lived/traveled outside US in past 30 days?: No Contact w/someone who lives/traveled outside US past 30 days?: No Exposure to someone with infectious disease in past 14 days?: No Do you have a fever (greater than 100.4 F or 38 C)?: No Have you tested positive for COVID-19?: No Exposed to someone with COVID-19 in past 14 days?: No Do you have a sore throat?: No Do you have a cough?: No Do you have any weakness?: No Are you experiencing any nausea/vomitting?: No Do you have any diarrhea?: No Are you experiencing any unusual bleeding?: No Do you have any muscle aches/pain?: No Do you have any abdominal pain?: No Are you experiencing loss of taste or smell?: No Other Medical History Have you received the Flu Vaccine for this season: No Have you received the Pneumonia Vaccine: No Review of Systems Review of Systems Review of systems (narrative): Negative *Cardiovascular Comments: Negative *Gastrointestinal Comments: Negative *Genitourinary Comments: Negative *Musculoskeletal Comments: Negative *Neurologic Comments: Negative Meds Home Medications and Allergies Home Medications ?Medication ?Instructions ?Recorded ?Confirmed ?Type multivitamin 1 cap PO DAILY Supplement 09/21/19 02/15/25 History rosuvastatin 5 mg tablet 5 mg PO DAILY Cholesterol 12/11/21 02/15/25 History tramadol 50 mg tablet 100 mg PO BID Pain 12/11/21 02/15/25 History amlodipine 10 mg tablet 10 mg PO DAILY High blood pressure 09/19/22 02/15/25 History hydroxyzine pamoate 25 mg capsule 25 mg PO Q8HP PRN Anxiety 09/26/22 02/15/25 History losartan 100 1 tab PO DAILY #30 tabs 10/30/22 02/15/25 Rx mg-hydrochlorothiazide 12.5 mg tablet metoprolol succinate 50 mg 50 mg PO DAILY High blood pressure 10/30/22 02/15/25 Rx tablet,extended release 24 hr #90 tabs (Toprol XL) New Prescriptions to Start Prescriptions: Allergies Allergy/AdvReac Type Severity Reaction Status Date / Time baires Allergy Severe Swelling Verified 02/15/25 10:12 of Lip/Tongue/Throat Exam *Routine HEENT Exam Head: Present normocephalic Eye: Present EOMI and PERRL ENT: Present mucous membranes moist *Routine Neck Exam Neck: Present supple *Routine Respiratory Exam Respiratory: Present CTA bilaterally *Routine Cardiovascular Exam Cardiovascular: Present RRR *Routine Abdominal Exam Abdominal: Present soft and normoactive bowel sounds; Absent tenderness *Routine Rectal Exam Rectal:: deferred *Routine Genitalia Exam Genitalia:: deferred *Routine Extremities Exam Extremities: Absent cyanosis, clubbing or edema *Routine Skin Exam Skin: Present warm; Absent rash *Routine Neurological Exam Neurological: Present alert and oriented X3 Assessment and Plan *Assessment and plan (1) Screening for colorectal cancer: Status: Acute Category: Medical Code(s): Z12.11 - Encounter for screening for malignant neoplasm of colon; Z12.12 - Encounter for screening for malignant neoplasm of rectum Plan A/P: 1. Screening for colon cancer is the preprocedural diagnosis. The patient will be anesthetized/sedated using MAC sedation. The patient has been seen and examined. Cardiac and lung assessment prior to the examination is stable. Proceed with planned screening colonoscopy.
[2025-02-15 10:09] VITALS: BMI 48.4
[2025-02-15] MEDS: LACTATED RINGERS 1000ML 1,000 ML 50 ML IV (10:11)
[2025-02-15 10:14] VITALS: BP 132/81; PULSE 86; RESP 18; TEMP 36.1; O2SAT 100
--- NOTE | 2025-02-15 10:28 | P.PNANES_ITS ---
[facility] Disclaimer: The information contained in this section may have been updated after the patient was seen, as this information can be updated by other users. Medical History Hyponatremia History of anemia HHD (hypertensive heart disease) Family history of early CAD History of COVID-19 Anxiety Osteoarthritis Hyperlipidemia Hypertension Allergies Hyperlipidemia Surgical History S/P JANELL (total abdominal hysterectomy) 09/26/22 - ELIZABETH MACIEL Hx of bilateral salpingectomy H/O: hysterectomy History of bilateral tubal ligation Family History Other Cancer Family history of diabetes mellitus type II Family history of myocardial infarction Social History (Updated 02/15/25 @ 10:16 by Martha Simpson RN) Smoking Status: Never smoker alcohol intake: never substance use type: denies use current occupational status: employed Travel in the last 8 weeks?: None housing: house lives independently: Yes marital status: single education level: high school caffeine: Yes special bhavesh needs: No agree to transfusion: No do you feel safe at home: Yes victim of physical abuse: No victim of emotional abuse: No victim of sexual abuse: No would you like helpful sources: No Have you lived/traveled outside US in past 30 days?: No Contact w/someone who lives/traveled outside US past 30 days?: No Exposure to someone with infectious disease in past 14 days?: No Do you have a fever (greater than 100.4 F or 38 C)?: No Have you tested positive for COVID-19?: No Exposed to someone with COVID-19 in past 14 days?: No Do you have a sore throat?: No Do you have a cough?: No Do you have any weakness?: No Are you experiencing any nausea/vomitting?: No Do you have any diarrhea?: No Are you experiencing any unusual bleeding?: No Do you have any muscle aches/pain?: No Do you have any abdominal pain?: No Are you experiencing loss of taste or smell?: No [facility] Anesthesia Checklist Patient Identification Patient Identification: Arm Band Structural Data Admitted From: Home Planned Operative Procedure/s: Colonoscopy Consent for Planned Operative Procedure(s) Verified: Yes Verified Documents: Surgical Consent and History and Physical NPO Status Verified Time NPO: 00:00 Additional verifications Anesthesia Reactions: No Hx Blood Transfusions: No Blood Transfusion Reaction: No Airway Assessment Mallampati Score:: Class II C-Spine Mobility Assessed: Yes TMJ Mobility Assessed: Yes Dentition: Good Dentition Neurological Assessment Level of Consciousness: Awake, Alert and Appropriate Anesthesia Plan Anesthesia Risk discussed: Yes Anesthesia Plan: Verified ASA Class: III Anesthesia Type: MAC
--- NOTE | 2025-02-15 10:43 | HMH.PROCNOTE ---
[facility] Procedure Note Date: 02/15/25 Time: 10:56 Procedure Note:: Colonoscopy Procedure Report: Colonoscopy Endoscopist: Hudson Roque II, MD Referring physician: Martin Mauricio MD Date of Procedure: February 15, 2025 Equipment: Olympus [id number] adult colonoscope Sedation: MAC sedation Indication: Mrs. Smith is a 49-year-old female who is here for initial screening colonoscopy. She reports no abdominal pain, weight loss, change in her bowel habits or rectal bleeding. She reports no family history of colon cancer. Procedure: Prior to the procedure, a history and physical exam was performed, and patient's medications and allergies were reviewed. The risks, benefits and alternatives of the sedation and procedure were discussed with the patient. All questions were answered and informed consent was obtained. The patient was brought to the procedure room. Patient identification and proposed procedure were verified by the physician and the nurse. The patient was placed in a left lateral decubitus position and the scope was passed under direct vision. Throughout the procedure, the patient's blood pressure, pulse, and oxygen saturations were monitored continuously. The colonoscopy was accomplished without difficulty. The patient tolerated the procedure well. Findings: On digital rectal examination there was normal rectal tone. There were no external hemorrhoids. The colonoscope was introduced through the anal canal to the rectum and advanced to the cecum. The ileocecal valve and appendiceal orifice were identified. The scope was advanced a short distance into the ileum which appeared grossly normal. The scope was then withdrawn into the colon. The cecum, ascending and transverse colon and mucosa were grossly normal. There were scattered diverticuli throughout the descending and sigmoid colon (LEFT colon). The rectum itself was normal. Upon retroflexion within the rectum there were grade 1-2 internal hemorrhoids. The preparation was excellent throughout with Windber Preparation Score of 9. The cecal time was 10 minutes. Impression: 1. Left-sided diverticulosis 2. Grade 1-2 internal hemorrhoids Plan: The patient will not require surveillance colonoscopy again for 10 years by ACS guidelines. I would encourage psyllium bulking fiber supplementation on a maintenance basis.
[2025-02-15 10:58] VITALS: BP 105/71; PULSE 77; RESP 16; TEMP 36.4; O2SAT 97
[2025-02-15 11:08] VITALS: BP 121/64; PULSE 80; RESP 18; O2SAT 98
[2025-02-15 11:18] VITALS: BP 128/84; PULSE 76; RESP 16; O2SAT 100
[2025-02-15 11:24] VITALS: BP 129/75; PULSE 69; RESP 18; O2SAT 100
== END 2025-02-15 11:28 | disposition home or self-care (01) ==
PROVIDERS: PCP Family Medicine; Visit Provider Internal Medicine Gastroenterology
PROC: 0DJD8ZZ Inspection of Lower Intestinal Tract, Via Natural or Artificial Opening Endoscopic (ICD-10-PCS; CPT 45378; principal; 2025-02-15 11:00)
DX: Z12.11 Encounter for screening for malignant neoplasm of colon (principal); K57.30 Diverticulosis of large intestine without perforation or abscess without bleeding; K64.0 First degree hemorrhoids; K64.1 Second degree hemorrhoids; E78.5 Hyperlipidemia, unspecified; M19.90 Unspecified osteoarthritis, unspecified site; I11.9 Hypertensive heart disease without heart failure; Z79.899 Other long term (current) drug therapy
CPT/HCPCS: 45378; J2003; J2704; J7120

== ENCOUNTER 2025-05-13 11:00 | Outpatient (CLI) | payer BC, SELFPAY ==
--- OUTSIDE RECORDS SUMMARY | 2025-05-13 09:45 | XMS_ITS | Encounter Summary ---
[facility] Organization [facility] Address [address] [place] [address] Care Team Providers Care Pecan Huller Name Role Phone Martin Mauricio MD Primary Care Provider + Reason for Visit * Reason Comments Follow-up Hypertension Encounter Details Date Type Department Care Team (Late st Contact Info) Description 05/13/2025 9:45 AM EST Office Visit [facility] [address] [place] [address] Martin Mauricio MD [address] [place] [address] Essential hypertension (Primary Dx); Hypercholesterolemia; Anxiety; Common wart Social History Tobacco Use Types Packs/Day Years Used Date Smoking Tobacco: Never Smokeless Tobacco: Never Alcohol Use Standard Drinks/Week Comments Never 0 (1 standard drink = 0.6 oz pur e alcohol) PHQ-2 Answer Date Recorded Retired PHQ-9: Brief Depression Severity Measure Score 0 02/18/2023 PHQ-2 Answer Date Recorded Patient Health Questionnaire-2 Score 0 05/13/2025 Comments Unknown Sex and Gender Information Value Date Recorded Sex Assigned at Female 11/09/2024 10:34 AM EDT Legal Sex Female 1:35 PM EDT Gender Identity Not on file Sexual Orientation Straight 11/09/2024 10 :34 AM EDT documented as of this encounter Last Filed Vital Signs Vital Sign Reading Time Taken Comments Blood Pressure 118/78 05/13/2025 9:41 AM EST Pulse 85 05/13/2025 9:41 AM EST Temperature 36.9 C (98.4 F) 05/13/2025 9:41 AM EST Respiratory Rate - - Oxygen Saturation 97% 05/13/2025 9:41 AM EST Inhaled Oxygen Concentration - - Weight 135 kg (296 lb 9.6 oz) 05/13/2025 9:41 AM EST Height 167.6 cm (5' 6 ) 05/13/2025 9:41 AM EST Body Mass Index 47.87 05/13/2025 9:41 AM EST documented in this encounter Functional Status documented as of this encounter Progress Notes * Martin Mauricio MD - 05/13/2025 9:45 AM EST Chief Complaint Patient presents with Follow-up Hypertension Subjective Karin Smith is a 50 y.o. who presents for chronic care of hypertension, hypercholesterolemia, and a few more acute complaints. She takes her medicines as prescribed. At last visit cholesterol had risen and she reports sometimes her pharmacy has difficulty getting her medication ([facility] in [place]) but she has been taking her rosuvastatin regularly since her last visit. New complaints today include a painful lesion on the palmar aspect of the index finger of the righthand. She also has nasal congestion that is mild in nature but has been present for 3 weeks. She denies sore throat The following portions of the patient's history were reviewed and updated as appropriate: allergies, current medications, past family history, past medical history, past social history, past surgicalhistory, and problem list. Review of Systems Objective Vital Signs: BP 118/78 Pulse 85 Temp 98.4 ??F (36.9 ??C) Ht 167.6 cm (66 ) Wt 135 kg (296 lb 9.6 oz) SpO2 97% BMI 47.87 kg/m?? Physical Exam Vitals reviewed. Constitutional: Appearance: Normal appearance. HENT: Head: Normocephalic and atraumatic. Right Ear: External ear normal. Left Ear: External ear normal. Nose: Nose normal. Mouth/Throat: Mouth: Mucous membranes are moist. Pharynx: Oropharynx is clear. Eyes: Conjunctiva/sclera: Conjunctivae normal. Cardiovascular: Rate and Rhythm: Normal rate and regular rhythm. Heart sounds: Normal heart sounds. No murmur heard. Pulmonary: Effort: Pulmonary effort is normal. No respiratory distress. Breath sounds: Normal breath sounds. Musculoskeletal: Cervical back: Normal range of motion and neck supple. No tenderness. Lymphadenopathy: Cervical: No cervical adenopathy. Skin: General: Skin is warm and dry. Neurological: Mental Status: She is alert. Psychiatric: Mood and Affect: Mood normal. Result Review Assessment and Plan Diagnoses and all orders for this visit: 1. Essential hypertension (Primary) 2. Hypercholesterolemia Comments: At goal. LDL 100. Cont. Rosuvastatin Orders: - rosuvastatin (CRESTOR) 5 MG tablet; Take 1 tablet by mouth Daily. Dispense: 90 tablet; Refill: 1 3. Anxiety - hydrOXYzine pamoate (VISTARIL) 25 MG capsule; Take 1 capsule by mouth Every 8 (Eight) Hours As Needed for Anxiety. Dispense: 90 capsule; Refill: 3 4. Common wart - salicylic acid-lactic acid (Compound W) 17 % external solution; Apply topically to the appropriate area as directed Daily. Dispense: 15 mL; Refill: 3 Plan 1. Hypertension is well-controlled. Continue amlodipine, metoprolol XL, Hyzaar. Reassess every 6 months 2. Hypercholesterolemia should be improved now with regular use of statin. Continue rosuvastatin 5 mg. Repeat LDL at annual physical in 6 months 3. Anxiety is stable with use of once daily hydroxyzine. Medication refilled. Reassess every 6 to 12 months 4. For the common wart on her finger I recommended [id number] salicylic acid with instructions on how to properly use 5. Continue regular orthopedic visits for her knee osteoarthritis which is ultimately going to require replacement 6. For her sinus congestion I have recommended [id number] pseudoephedrine Follow Up Return in about 6 months (around 11/10/2025) for Annual. Patient was given instructions and counseling regarding her condition or for health maintenance advice. Please see specific information pulled into the AVS if appropriate. documented in this encounter Plan of Treatment Upcoming Encounters Date Type Department Care Team (Late st Contact Info) Description 11/11/2025 10:15 AM EDT Office Visit [facility] [address] [place] [id number] Martin Mauricio MD [address] [place] [address] documented as of this encounter Visit Diagnoses Diagnosis Essential hypertension- Primary Unspecified essential hypertension Hypercholesterolemia Pure hypercholesterolemia Anxiety Anxiety state, unspecified Common wart Other specified viral warts documented in this encounter Care Teams Pecan Huller Relationship Specialty Start Date End Date Martin Mauricio MD [address] [place] [address] PCP - General Family Medicine 12/08/21 documented as of this encounter
--- NOTE | 2025-05-13 11:00 | MM_ITS ---
PROCEDURE INFORMATION: Exam: MG Bilateral Screening 3D Mammography Exam date and time: 05/13/2025 11:06 AM Age: 50 years old Clinical indication: Screening examination. TECHNIQUE: Imaging protocol: Bilateral Screening tomosynthesis and 2D mammography including computer-aided detection (CAD) when performed. COMPARISON: 1. MG MM DIG SCREENING MAMM BI W/CAD 04/10/2024 7:43 AM 2. MG MM DIG SCREENING MAMM BI W/CAD 02/25/2023 8:15 AM FINDINGS: MAMMOGRAPHY: Breast composition: The breasts are almost entirely fatty. Mass: None. Architectural distortion: None. Calcifications: No suspicious calcifications. Asymmetric density: None. Skin thickening: None. Axillary adenopathy: None. IMPRESSION: No mammographic evidence of malignancy. Annual screening is recommended unless otherwise clinically indicated. ASSESSMENT: BI-RADS Category 1: Negative.
--- OUTSIDE RECORDS SUMMARY | 2025-05-13 11:23 | XMS_ITS | Encounter Summary ---
Author Organization [facility] Address [address] [place] [address] Care Team Providers Care Industrial Welder Name Role Phone Martin Mauricio MD Primary Care Provider + Encounter Details Date Type Department Care Team (Late Contact Info) Description 11/11/2024 Results Follow-Up [facility] [address] [facility] [place] [address] Martin Mauricio MD [address] [place] [address] Social History Tobacco Use Types Packs/Day Years Used Date Smoking Tobacco: Never Smokeless Tobacco: Never Alcohol Use Standard Drinks/Week Comments Never 0 (1 standard drink = 0.6 oz pur e alcohol) PHQ-2 Answer Date Recorded Retired PHQ-9: Brief Depression Severity Measure Score 0 02/18/2023 PHQ-2 Answer Date Recorded Retired PHQ-9: Brief Depression Severity Measure Score 0 08/27/2023 Comments Unknown Sex and Gender Information Value Date Recorded Sex Assigned at Female 11/09/2024 10:34 AM EDT Legal Sex Female 1:35 PM EDT Gender Identity Not on file Sexual Orientation Straight 11/09/2024 10 :34 AM EDT documented as of this encounter Plan of Treatment Upcoming Encounters Date Type Department Care Team (Late Contact Info) Description 11/11/2025 10:15 AM EDT Office Visit [facility] [address] [facility] [place] [address] Martin Mauricio MD [address] [place] [address] documented as of this encounter Visit Diagnoses Not on filedocumented in this encounter Care Teams Industrial Welder Relationship Specialty Start Date End Date Martin Mauricio MD [address] [place] [address] PCP - General Family Medicine 12/08/21 documented as of this encounter
--- OUTSIDE RECORDS SUMMARY | 2025-05-13 11:23 | XMS_ITS | Encounter Summary ---
[facility] Address [address] [place] [address] Care Team Providers Care Hospital Pharmacy Director Name Role Phone Martin Mauricio MD Primary Care Provider + Reason for Visit * Reason Onset Date Comments Med Refill 04/29/2025 Encounter Details Date Type Department Care Team (Late Contact Info) Description 04/29/2025 Refill [facility] [address] [facility] [place] [address] Martin Mauricio MD [address] [facility] [place] [address] Hypercholesterolemia Social History Tobacco Use Types Packs/Day Years [...] Description 11/11/2025 10:15 AM EDT Office Visit [facility] [address] [facility] [place] [address] Martin Mauricio MD [address] [place] [address] documented as of this encounter Visit Diagnoses Diagnosis Hypercholesterolemia Pure hypercholesterolemia documented in this encounter Care Teams Hospital Pharmacy Director Relationship Specialty Start Date End Date Martin Mauricio MD [address] [address] PCP - General Family Medicine 12/08/21 documented as of this encounter
--- OUTSIDE RECORDS SUMMARY | 2025-05-13 11:23 | XMS_ITS | Clinical Summary ---
Author Organization [facility] Address [address] [place] [address] Care Team Providers Care Venture Capitalist Name Role Phone Martin Mauricio MD Primary Care Provider + Allergies Active Allergy Reactions Criticality Noted Date Comments Baker Anaphylaxis High 09/26/2022 Medications multivitamin with minerals tablet tablet Take 1 tablet by mouth Daily. Active Diclofenac Sodium (VOLTAREN) 1 % gel gelIndications:Pr imary osteoarthritis of left knee Apply 4 g topically to the appropriate area as directed 4 (Four) Times a Day. 350 g 11 023 Active Additional Information Patient not taking.Reported on 05/13/2025 amLODIPine (NORVASC) 10 MG tabletIndications :Essential hypertension Take 1 tablet by mouth Daily. 90 tablet 3 025 Active losartan-hydrochl orothiazide (HYZAAR) 100-12.5 MG per tabletIndications :Essential hypertension Take 1 tablet by mouth Daily. 90 tablet 3 025 Active metoprolol succinate XL (TOPROL-XL) 50 MG 24 hr tabletIndications :Essential hypertension Take 1 tablet by mouth Daily. 90 tablet 3 025 Active traMADol (ULTRAM) 50 MG tabletIndications :Primary osteoarthritis of right knee Take 2 tablets by mouth 2 (Two) Times a Day As Needed for Moderate Pain. 120 tablet 5 025 Active METAMUCIL FIBER PO Take by mouth. Activ e hydrOXYzine pamoate (VISTARIL) 25 MG capsuleIndication s:Anxiety Take 1 capsule by mouth Every 8 (Eight) Hours As Needed for Anxiety. 90 capsule 3 025 Active rosuvastatin (CRESTOR) 5 MG tabletIndications :Hypercholesterol emia Take 1 tablet by mouth Daily. 90 tablet 1 025 Active salicylic acid-lactic acid (Compound W) 17 % external solutionIndicatio ns:Common wart Apply topically to the appropriate area as directed Daily. 15 mL 3 025 Active azelastine (ASTELIN) 0.1 % nasal sprayIndications: Seasonal allergic rhinitis due to pollen 2 sprays into the nostril(s) as directed by provider 2 (Two) Times a Day. Use in each nostril as directed 30 mL 12 023 2024 Discontinued hydrOXYzine pamoate (VISTARIL) 25 MG capsule Take 1 capsule by mouth Every 8 (Eight) Hours As Needed for Anxiety. 90 capsule 3 025 2024 Discontinued(R eorder) rosuvastatin (CRESTOR) 5 MG tabletIndications :Hypercholesterol emia Take 1 tablet by mouth Daily. 90 tablet 3 025 2024 Discontinued(R eorder) rosuvastatin (CRESTOR) 5 MG tabletIndications :Hypercholesterol emia Take 1 tablet by mouth Daily. 90 tablet 025 2024 Discontinued(R eorder) Active Problems Problem Noted Date Diagnosed Date Essential hypertension 12/08/2021 Assessment & Plan (08/27/2023 9:30 AM EST): Hypertension is stable and controlled Continue current treatment regimen. Dietary sodium restriction. Weight loss. Regular aerobic exercise. Blood pressure will be reassessed in 6 months. Assessment & Plan (09/10/2022 4:10 PM EDT): Hypertension is improving with treatment. Continue current treatment regimen. Regular aerobic exercise. Blood pressure will be reassessed at the next regular appointment. Assessment & Plan (06/12/2022 7:45 AM EST): Hypertension is improving with treatment. Continue current treatment regimen. Dietary sodium restriction. Ambulatory blood pressure monitoring. Blood pressure will be reassessed at the next regular appointment. BMP has been ordered to reassess renal function she has been off phentermine for 2 weeks Hypercholesterolemia 12/08/2021 Assessment & Plan (08/27/2023 9:30 AM EST): Lipid abnormalities are improving with treatment Plan: Continue same medication/s without change. Discussed medication dosage, use, side effects, and goals of treatment in detail. Counseled patient on lifestyle modifications to help control hyperlipidemia. Patient Treatment Goals: LDL goal is under 100 Followup in 6 months. Class 3 severe obesity due t o excess calories with serious comorbidity and body mass index (BMI) of 45.0 to 49.9 in adult 12/08/2021 Assessment & Plan (08/27/2023 9:31 AM EST): Patient's (Body mass index is 47.23 kg/m .) indicates that they are morbidly/severely obese (BMI > 40 or > 35 with obesity - related health condition) with health conditions that include hypertension and dyslipidemias . Weight is worsening. BMI is above average; BMI management plan is completed. We discussed low calorie, low carb based diet program, portion control, increasing exercise, and Information on healthy weight added to patient's after visit summary. Assessment & Plan (09/10/2022 4:11 PM EDT): Patient's (Body mass index is 45.15 kg/m .) indicates that they are morbidly/severely obese (BMI > 40 or > 35 with obesity - related health condition) with health conditions that include hypertension, dyslipidemias and osteoarthritis . Weight is improving with lifestyle modifications. BMI is above average; BMI management plan is completed. We discussed portion control and increasing exercise. Assessment & Plan (06/12/2022 7:44 AM EST): Patient's (Body mass index is 44.92 kg/m .) indicates that they are morbidly obese (BMI > 40 or > 35 with obesity - related health condition) with health conditions that include hypertension, dyslipidemias and osteoarthritis . Weight is improving with treatment. BMI is is above average; BMI management plan is completed. We discussed portion control, increasing exercise and Patient will temporarily stop phentermine. Primary osteoarthritis of right knee 12/08/2021 Overview (12/08/2021): IA Corticosteroids q 3months by Dr. Martel Assessment & Plan (06/12/2022 7:45 AM EST): Stable. Tramadol was refilled today Encounters Date Type Department Care Team Description 05/13/2025 9:45 AM EST Office Visit [facility] [address] [place] [address] Martin Mauricio MD Essential hypertension (Primary Dx); Hypercholesterolemia; Anxiety; Common wart 05/13/2025 Travel 04/29/2025 Refill [facility] [address] [place] [address] Martin Mauricio MD Hypercholesterolemia 03/09/2025 Refill [facility] [address] [place] [address] Martin Mauricio MD Primary osteoarthritis of right knee from Last 3 Months Immunizations Immunization Administration Dates Next Due Td (TDVAX) 09/02/1996 Family History Medical History Relation Name Comments Heart disease Father Dayo Diabetes Mother Leesa Heart disease Mother Leesa Hyperlipidemia Mother Leesa Hearing loss Paternal Aunt Rhonda Other uncles a nd cousins runs in the family. Relation Name Status Comments Father Dayo Mother Leesa Paternal Aunt Rhonda Social History Tobacco Use Types Packs/Day Years Used Date Smoking Tobacco: Never Smokeless Tobacco: Never Tobacco Cessation:Counseling Given: Not Answered Alcohol Use Standard Drinks/Week Comments Never 0 [...] Orientation Straight 11/09/2024 10 :34 AM EDT Last Filed Vital Signs Vital Sign Reading Time Taken Comments Blood Pressure 118/78 05/13/2025 9:41 AM EST Pulse 85 05/13/2025 9:41 AM EST Temperature 36.9 C (98.4 F) 05/13/2025 9:41 AM EST Respiratory Rate 16 02/25/2024 8:30 AM EDT Oxygen Saturation 97% 05/13/2025 9:41 AM EST Inhaled Oxygen Concentration - - Weight 135 kg (296 lb 9.6 oz) 05/13/2025 9:41 AM EST Height 167.6 cm (5' 6 ) 05/13/2025 9:41 AM EST Body Mass Index 47.87 05/13/2025 9:41 AM EST Plan of Treatment Upcoming Encounters Date Type Department Care Team (Late st Contact Info) Description 11/11/2025 10:15 AM EDT Office Visit [facility] [address] [facility] [place] [address] Martin Mauricio MD [address] [place] [address] Health Maintenance Due Date Last Done Comments Annual Gynecologic Pelvic an d Breast Exam 1975 TDAP/TD VACCINES (2 - Tdap) 09/02/2006 09/02/1996 COLOGUARD 02/19/2021 COLON CANCER SCREENING 5 YEA R SIGMOIDOSCOPY 02/19/2021 CT COLONOGRAPHY 02/19/2021 FECAL OCCULT BLOOD TEST 02/19/2021 FIT Testing (1 year) 02/19/2021 HEPATITIS C SCREENING 11/30/2021 INFLUENZA VACCINE 11/09/2025 Postponed from 01/29/2025 (Patient Refused) ANNUAL PHYSICAL 11/10/2025 11/10/2024 LIPID PANEL 11/10/2025 11/10/2024, 08/27/2023 MAMMOGRAM 04/10/2026 04/10/2024, 02/25/2023 COLONOSCOPY 12/04/2033 12/05/2023 COLORECTAL CANCER SCREENING 12/04/2033 Pneumococcal Vaccine 0-49 Aged Out No longer eligible based on patient's age to complete this topic Procedures Procedure Name Priority Date/Time Associated Diagnosis Comments LIPID PANEL Routine 11/10/2024 10:50 AM EDT Hypercholesterolemi a SCANNED - MAMMO 04/10/2024 SCANNED - COLONOSCOPY 12/05/2023 from Last 3 Months or Most Recently Relevant to Health Maintenance Results * (ABNORMAL) Lipid Panel (11/10/2024 10:50 AM EDT) Total Cholesterol 216(H) 0 - 200 mg/dL [facility] Comment: Cholesterol Reference Ranges (U.S. Department of Health and Human Services ATP III Classifications) Desirable <200 mg/dL Borderline High 200-239 mg/dL High Risk >240 mg/dL Triglyceride Reference Ranges (U.S. Department of Health and Human Services ATP III Classifications) Normal <150 mg/dL Borderline High 150-199 mg/dL High 200-499 mg/dL Very High >500 mg/dL HDL Reference Ranges (U.S. Department of Health and Human Services ATP III Classifications) Low <40 mg/dl (major risk factor for CHD) High >60 mg/dl ('negative' risk factor for CHD) LDL Reference Ranges (U.S. Department of Health and Human Services ATP III Classifications) Optimal <100 mg/dL Near Optimal 100-129 mg/dL Borderline High 130-159 mg/dL High 160-189 mg/dL Very High >189 mg/dL LDL is calculated using the NIH LDL-C calculation. Triglycerides 93 0 - 150 mg/dL [facility] HDL Cholesterol 71(H) 40 - 60 mg/dL [facility] VLDL Cholesterol Chirag 16 5 - 40 mg/dL [facility] LDL Chol Calc (NIH) 129(H) 0 - 100 mg/dL [facility] Blood 11/10/2024 10:5 0 AM EDT 11/10/2024 Narrative [facility] ([facility]) - 11/11/2024 3:07 AM EDT Performed at: [address] [place] [address] [id number] Washer Blanket: Gama Sinclair MD, Phone: [phone] Patient Fasting: Y us Martin Mauricio MD LAB BLOOD ORDERABLES Fin al Result [facility] ([facility]) [address] [place] [address], [facility] [address] [place] [address], [place] [phone] * MAMMO Scan (04/10/2024) Anatomical Region Laterality Modality Other Martin Mauricio MD CHART REVIEW TABS Fin al Result * Colonoscopy, Scan (12/05/2023) Martin Mauricio MD CHART REVIEW TABS Fin al Result from Last 3 Months or Most Recently Relevant to Health Maintenance Insurance [facility] BLUE [employer]IELD PPO Member Subscriber Plan / Payer (Ef fective 2020-Present) Name:Karin Smith Relation to Subscriber:Self Name:Karin Smith Payer ID:[id number] (NAIC) Type:Not on file Address: [facility] [address] [place] [id number] Care Teams Venture Capitalist Relationship Specialty Start Date End Date Martin Mauricio MD [address] [place] [address] PCP - General Family Medicine 12/08/21
--- OUTSIDE RECORDS SUMMARY | 2025-05-13 11:23 | XMS_ITS | Encounter Summary ---
Author Organization [facility] Address [address] [place] [address] Care Team Providers Care Commercial Baker Helper Name Role Phone Martin Mauricio MD Primary Care Provider + Encounter Details Date Type Department Care Team (Latest Contact Info) Description 05/13/2025 Travel Social History Tobacco Use Types Packs/Day Years [...] AM EDT documented as of this encounter Functional Status documented as of this encounter Plan of Treatment Upcoming Encounters Date Type Department Care Team (Late st Contact Info) Description 11/11/2025 10:15 AM EDT Office Visit [facility] [address] [place] [address] Martin Mauricio MD [address] [place] [address] documented as of this encounter Visit Diagnoses Not on filedocumented in this encounter Care Teams Commercial Baker Helper Relationship Specialty Start Date End Date Martin Mauricio MD [address] [place], [place] [id number] PCP - General Family Medicine 12/08/21 documented as of this encounter
--- OUTSIDE RECORDS SUMMARY | 2025-05-13 11:23 | XMS_ITS | Clinical Summary ---
Author Organization [facility] Address [address] [place] [address] Care Team Providers Care Educational Guidance Counselor Name Role Phone Unavailable Primary Care Provider Unavailabl e Social History Tobacco Use Types Packs/Day Years Used Date Smoking Tobacco: Never Assessed Comments Unknown Sex and Gender Information Value Date Recorded Sex Assigned at Not on file Legal Sex Female 11:45 AM EST Gender Identity Not on file Sexual Orientation Not on file Plan of Treatment Health Maintenance Due Date Last Done Comments [facility]-Depression Screening 1975 [facility]-/Child/Adol SDOH Screenings 1975 [facility]- SDOH Screenings 02/19/1994 [facility]-Adult SDOH Screenings 02/19/1994 [facility]-Hepatitis B Vaccines (1 of 3 - 19+ 3-dose series) 02/19/1995 [facility]-DTaP,Tdap,and Td Vaccine s (1 - Tdap) 09/03/1996 09/02/1996 [facility]-Pap Smear 02/19/1997 [facility]-Cervical Cancer Screening 02/19/2006 [facility]-HPV/Cotest 02/19/2006 CT Colonography 02/19/2021 Colonoscopy 02/19/2021 FIT-DNA 02/19/2021 FIT 02/19/2021 FOBT 02/19/2021 Sigmoidoscopy 02/19/2021 [facility]-Colorectal Cancer Screening 02/19/2021 [id number] Vaccine ( season) 2025 10/10/2020, 09/12/2020 [facility]-Influenza Vaccine (#1) 2025 [facility]-Zoster Vaccines (1 of 2) 02/19/2026 HPV Vaccines Aged Out No longer eligi ble based on patient's age to complete this topic [facility]-HIB Vaccines Aged Out No longer e ligible based on patient's age to complete this topic [facility]-Hepatitis A Vaccines Aged Out No longer eligible based on patient's age to complete this topic [facility]-IPV Vaccines Aged Out No longer e ligible based on patient's age to complete this topic [facility]-Pneumococcal Vaccine: Pediatrics (0 to 5 Years) and At-Risk Patients (6 to 49 Years) Aged Out No longer eligible b ased on patient's age to complete this topic [facility]-Rotavirus Vaccines Aged Out No lo nger eligible based on patient's age to complete this topic
--- OUTSIDE RECORDS SUMMARY | 2025-05-13 11:23 | XMS_ITS | Encounter Summary ---
Author Organization [facility] Address [address] [place] [address] Care Team Providers Care Wood Coater Name Role Phone Martin Mauricio MD Primary Care Provider + Reason for Visit * Reason Onset Date Comments Med Refill 12/14/2022 Encounter Details Date Type Department Care Team (Late Contact Info) Description 12/14/2022 Refill [facility] [address] [place] [address] Martin Mauricio MD [address] [place] [address] Primary osteoarthritis of left knee Social History Tobacco Use Types Packs/Day Years Used Date Smoking Tobacco: Never Smokeless Tobacco: Never Alcohol Use Standard Drinks/Week Comments Never 0 (1 standard drink = 0.6 oz pur e alcohol) PHQ-2 Answer Date Recorded Retired PHQ-9: Brief Depression Severity Measure Score 0 03/12/2022 Comments Unknown Sex and Gender Information Value Date Recorded Sex Assigned at Female 11/09/2024 10:34 AM EDT Legal Sex Female 1:35 PM EDT Gender Identity Not on file Sexual Orientation Straight 11/09/2024 10 :34 AM EDT documented as of this encounter Plan of Treatment Upcoming Encounters Date Type Department Care Team (Late Contact Info) Description 11/11/2025 10:15 AM EDT Office Visit [facility] [address] [place] [address] Martin Mauricio MD [address] [place] [address] documented as of this encounter Visit Diagnoses Diagnosis Primary osteoarthritis of left knee documented in this encounter Care Teams Wood Coater Relationship Specialty Start Date End Date Martin Mauricio MD [address] [place] [address] PCP - General Family Medicine 12/08/21 documented as of this encounter
--- OUTSIDE RECORDS SUMMARY | 2025-05-13 11:23 | XMS_ITS | Encounter Summary ---
Author Organization [facility] Address [address] [place] [address] Care Team Providers Care Db2 Developer Name Role Phone Martin Mauricio MD Primary Care Provider + Reason for Visit * Reason Onset Date Comments Med Refill Prior Authorization 02/18/2023 Diclofenac S odium 1% Encounter Details Date Type Department Care Team (Late st Contact Info) Description 02/18/2023 Refill [facility] [address] [place] [address] Martin Mauricio MD [address] [place] [address] Social History Tobacco Use Types Packs/Day Years Used Date Smoking Tobacco: Never Smokeless Tobacco: Never Alcohol Use Standard Drinks/Week Comments Never 0 (1 standard drink = 0.6 oz pur e alcohol) PHQ-2 Answer Date Recorded Retired PHQ-9: Brief Depression Severity Measure Score 0 02/18/2023 PHQ-2 Answer Date Recorded Retired PHQ-9: Brief Depression Severity Measure Score 0 02/18/2023 Comments Unknown Sex and Gender Information Value Date Recorded Sex Assigned at Female 11/09/2024 10:34 AM EDT Legal Sex Female 1:35 PM EDT Gender Identity Not on file Sexual Orientation Straight 11/09/2024 10 :34 AM EDT documented as of this encounter Miscellaneous Notes * Telephone Encounter - Holley Skinner MA - 02/18/2023 5:48 PM EDT Submitted prior auth on Cover My Meds Stephen# [id number] CaseId:[id number];Status:Approved;Review Type:Prior Auth;Coverage Start Date:01/19/2023;Coverage End Date:02/18/2024; documented in this encounter Plan of Treatment Upcoming Encounters Date Type Department Care Team (Late st Contact Info) Description 11/11/2025 10:15 AM EDT Office Visit [facility] [address] [place] [address] Martin Mauricio MD [address] [place] [address] documented as of this encounter Visit Diagnoses Not on filedocumented in this encounter Care Teams Db2 Developer Relationship Specialty Start Date End Date Martin Mauricio MD [address] [place] [address] PCP - General Family Medicine 12/08/21 documented as of this encounter
== END 2025-05-13 23:59 | disposition home or self-care (01) ==
LOC: RAD 11:01
PROVIDERS: PCP Family Medicine; Visit Provider Nurse Practitioner Obstetrics & Gynecology
DX: Z12.31 Encounter for screening mammogram for malignant neoplasm of breast (principal)
CPT/HCPCS: 77063; 77067